=== PATIENT | male | born 1940 | race African-American/Black ===

== ENCOUNTER 2017-08-29 14:02 | Inpatient (IN) | payer MEDICAID, OTHER ==
[~2017-08-29] VITALS: Ht 172.7 cm; Wt 45.4 kg
--- NOTE | 2017-08-29 14:08 | Emergency Room Report ---
History of Present Illness General Source: Patient, EMS Present Illness HPI Paramedics were called by concerned neighbors. The patient's been losing weight and becoming weaker over the last month. He states his appetite has been good. He denies any pain in his body. She complains about generalized weakness. He denies any fevers, chills, shortness of breath, dysuria, rashes. The patient does not smoke. He hasn't seen a doctor for quite some time. He denies taking any medications at this time. Paramedics performed a 12-lead it was normal. Denies depression. Allergies: Coded Allergies: No Known Allergies (Verified , 07/05/11) Patient History Past Medical History: see triage record Social History: Denies: smoking, alcohol use, drug use Social History Narrative home Reviewed Nursing Documentation: PMH: Agreed, PSxH: Agreed Review of Systems All Other Systems: negative except mentioned in HPI Physical Exam Vital Signs Date Time Temp Pulse Resp B/P (MAP) Pulse Ox O2 Delivery O2 Flow Rate FiO2 08/29/17 14:08 90 16 142/96 99 Room Air 08/29/17 14:25 97.4 Sp02 EP Interpretation: reviewed, normal General Appearance: alert, GCS 15, non-toxic, thin - cachexia Eyes: bilateral eye normal inspection, bilateral eye PERRL ENT: moist mucus membranes - poor dentition Neck: normal inspection, full range of motion Respiratory: normal inspection, lungs clear, normal breath sounds Cardiovascular #1: regular rate, rhythm, no edema Cardiovascular #2: 2+ radial (L) Gastrointestinal: normal bowel sounds, non tender, soft, no mass, scaphoid Genitourinary: no CVA tenderness Musculoskeletal: back normal, digits/nails normal, normal range of motion Neurologic: alert, oriented x3, motor strength/tone normal, DTRs symmetric, sensory intact Psychiatric: mood/affect normal Skin: normal inspection, no rash Medical Decision Making Diagnostic Impression: Primary Impression: Hyperkalemia Additional Impressions: Renal failure Qualified Codes: N17.9 - Acute kidney failure, unspecified Hypothyroid Qualified Codes: E03.9 - Hypothyroidism, unspecified Failure to thrive Qualified Codes: R62.7 - Adult failure to thrive Protein calorie malnutrition Qualified Codes: E43 - Unspecified severe protein-calorie malnutrition ER Course Patient presents with generalized weakness. He really has retching calorie malnutrition at this time. Differential includes diabetes, acute myocardial infarction, alert slight imbalance, dehydration, occult infection and occult tumor. The patient will be evaluated with EKG, chest x-ray and labs. We will be giving him gentle IV hydration. EKG no injury. CXR hyperinflated lungs. Labs with renal failure. TSH elevated. Some pyuria. Elevated lactate. Improved slightly with IV hydration. Elevated TSH treated with hydrocortisone and synthroid. Admit med, Dr. Mtz - Dr. Pino international accounting manager. Laboratory Tests Test 08/29/17 14:30 08/29/17 15:45 08/29/17 16:50 White Blood Count 4.2 K/UL (4.8-10.8) L Red Blood Count 3.67 M/UL (4.70-6.10) L Hemoglobin 11.5 G/DL (14.2-18.0) L Hematocrit 36.9 % (42.0-52.0) L Mean Corpuscular Volume 101 FL (80-99) H Mean Corpuscular Hemoglobin 31.2 PG (27.0-31.0) H Mean Corpuscular Hemoglobin Concent 31.0 G/DL (32.0-36.0) L Red Cell Distribution Width 16.1 % (11.6-14.8) H Platelet Count 139 K/UL (150-450) L Mean Platelet Volume 8.3 FL (6.5-10.1) Neutrophils (%) (Auto) 78.4 % (45.0-75.0) H Lymphocytes (%) (Auto) 10.6 % (20.0-45.0) L Monocytes (%) (Auto) 6.6 % (1.0-10.0) Eosinophils (%) (Auto) 4.0 % (0.0-3.0) H Basophils (%) (Auto) 0.3 % (0.0-2.0) Erythrocyte Sedimentation Rate 93 MM/HR (0-20) H Prothrombin Time 10.3 SEC (9.30-11.50) Prothrombin Time INR 1.0 (0.9-1.1) PTT 28 SEC (23-33) Sodium Level 142 MMOL/L (136-145) Potassium Level 5.8 MMOL/L (3.5-5.1) H Chloride Level 106 MMOL/L (98-107) Carbon Dioxide Level 18 MMOL/L (21-32) L Anion Gap 19 mmol/L (5-15) H Blood Urea Nitrogen 134 mg/dL (7-18) H Creatinine 9.0 MG/DL (0.55-1.30) H Estimate Glomerular Filtration Rate mL/min (>60) Glucose Level 90 MG/DL (74-106) Lactic Acid Level 2.40 mmol/L (0.66-2.22) H 1.40 mmol/L (0.66-2.22) Calcium Level 9.6 MG/DL (8.5-10.1) Magnesium Level 2.2 MG/DL (1.8-2.4) Total Bilirubin 0.5 MG/DL (0.2-1.0) Aspartate Amino Transferase (AST) 13 U/L (15-37) L Alanine Aminotransferase (ALT) 16 U/L (12-78) Alkaline Phosphatase 56 U/L (46-116) Total Creatine Kinase 95 U/L (26-308) Troponin I 0.025 ng/mL (0.000-0.056) Pro-B-Type Natriuretic Peptide 5430 pg/mL (0-125) H Total Protein 8.2 G/DL (6.4-8.2) Albumin 3.2 G/DL (3.4-5.0) L Globulin 5.0 g/dL Albumin/Globulin Ratio 0.6 (1.0-2.7) L Thyroid Stimulating Hormone (TSH) 12.627 uiU/mL (0.358-3.740) Serum Alcohol 3 mg/dL Urine Color Pale yellow Urine Appearance Clear Urine pH 5 (4.5-8.0) Urine Specific [place] 1.010 (1.005-1.035) Urine Protein 2+ (NEGATIVE) H Urine Glucose (UA) Negative (NEGATIVE) Urine Ketones Negative (NEGATIVE) Urine Occult Blood 1+ (NEGATIVE) H Urine Nitrite Negative (NEGATIVE) Urine Bilirubin Negative (NEGATIVE) Urine Urobilinogen Normal MG/DL (0.0-1.0) Urine Leukocyte Esterase 1+ (NEGATIVE) H Urine RBC 2-4 /HPF (0 - 0) H Urine WBC 5-10 /HPF (0 - 0) H Urine Squamous Epithelial Cells None /LPF (NONE/OCC) Urine Amorphous Sediment Moderate /LPF (NONE) H Urine Bacteria Few /HPF (NONE) Urine Opiates Screen Negative (NEGATIVE) Urine Barbiturates Screen Negative (NEGATIVE) Phencyclidine (PCP) Screen Negative (NEGATIVE) Urine Amphetamines Screen Negative (NEGATIVE) Urine Benzodiazepines Screen Negative (NEGATIVE) Urine Cocaine Screen Negative (NEGATIVE) Urine Marijuana (THC) Screen Negative (NEGATIVE) EKG Diagnostic Results Rate: normal Rhythm: NSR ST Segments: no acute changes Rhythm Strip Diag. Results EP Interpretation: yes Rhythm: NSR, no PVC's, no ectopy Chest X-Ray Diagnostic Results Chest X-Ray Diagnostic Results : Chest X-Ray Ordered: Yes Indication: Other EP Interpretation: Yes Interpretation: no consolidation, no effusion, no pneumothorax, other - PC malnutrition Impression: Other Electronically Signed by: Electronically signed by Maxim Borges MD Last Vital Signs Date Time Temp Pulse Resp B/P (MAP) Pulse Ox O2 Delivery O2 Flow Rate FiO2 08/30/17 04:00 96.5 76 18 123/71 96 Room Air Status: improved Disposition: ADMITTED INPATIENT Condition: Serious Maxim Borges M.D. Aug 29, 2017 14:08
[2017-08-29] MEDS ORDERED: NKM (14:14)
[2017-08-29 14:25] VITALS: BP 127/83
[2017-08-29 14:57] LABS: BASOPHILS % (AUTO) 0.3 % (0.0-2.0); HEMATOCRIT 36.9 % (42.0-52.0); HEMOGLOBIN 11.5 G/DL (14.2-18.0); LYMPHOCYTES % (AUTO) 10.6 % (20.0-45.0); MEAN CORPUSCULAR VOLUME 101 FL (80-99); MONOCYTES % (AUTO) 6.6 % (1.0-10.0); NEUTROPHILS % (AUTO) 78.4 % (45.0-75.0); PLATELET COUNT 139 K/UL (150-450); RED BLOOD COUNT 3.67 M/UL (4.70-6.10); RED CELL DISTRIBUTION WIDTH 16.1 % (11.6-14.8); WHITE BLOOD COUNT 4.2 K/UL (4.8-10.8)
[2017-08-29 15:06] LABS: ANION GAP 19 mmol/L (5-15); BLOOD UREA NITROGEN 134 mg/dL (7-18); CALCIUM 9.6 MG/DL (8.5-10.1); CARBON DIOXIDE 18 MMOL/L (21-32); CHLORIDE 106 MMOL/L (98-107); POTASSIUM 5.8 MMOL/L (3.5-5.1); SODIUM 142 MMOL/L (136-145)
[2017-08-29 15:20] LABS: ALANINE AMINOTRANSFERASE 16 U/L (12-78); ALBUMIN 3.2 G/DL (3.4-5.0); ALBUMIN/GLOBULIN RATIO 0.6 (1.0-2.7); ALKALINE PHOSPHATASE 56 U/L (46-116); ASPARTATE AMINO TRANSFERASE 13 U/L (15-37); BILIRUBIN,TOTAL 0.5 MG/DL (0.2-1.0); CREATINE KINASE 95 U/L (26-308)
[2017-08-29] MEDS ORDERED: Calcium Gluconate 1gm/10ml vial IVP ONE (15:45)
[2017-08-29] MEDS ORDERED: Sodium Bicarbonate 50ml Carp IV ONE (15:45)
[2017-08-29] MEDS ORDERED: Sodium Polystyrene Sulfonate 15gm Powder ORAL ONE (15:45)
[2017-08-29] MEDS ORDERED: Hydrocortisone 100mg Inj IV ONE (15:45)
[2017-08-29 16:00] VITALS: BP 132/84
--- NOTE | 2017-08-29 16:07 | Diagnostic Imaging Report ---
Indication: Shortness of Technique: One view of the chest Comparison: 07/05/2011 Findings: Lungs and pleural spaces are clear. Heart size is normal again demonstrated are bilateral hilar granulomatous edie calcifications. The heart size is normal. There is mild elevation of the right hemidiaphragm. No significant interim change Impression: No acute process Evidence old granulomatous disease
[2017-08-29 16:14] LABS: APPEARANCE,URINE CLEAR; BILIRUBIN, URINE NEGATIVE (NEGATIVE); COLOR,URINE PALE YELLOW; GLUCOSE, URINE (UA) NEGATIVE (NEGATIVE); KETONES,URINE NEGATIVE (NEGATIVE); LEUKOCYTE ESTERASE ,URINE 1+ (NEGATIVE); NITRITE,URINE NEGATIVE (NEGATIVE); PH,URINE 5 (4.5-8.0); PROTEIN,URINE 2+ (NEGATIVE); UROBILINOGEN,URINE NORMAL MG/DL (0.0-1.0)
[2017-08-29 18:00] VITALS: BP 139/93
[2017-08-29 18:10] VITALS: BP 155/90
[2017-08-29 20:19] VITALS: BP 149/78
[2017-08-30] VITALS: BP 139/73
[2017-08-30 04:00] VITALS: BP 123/71
[2017-08-30 08:00] VITALS: BP 137/76
--- NOTE | 2017-08-30 10:39 | Cardiac Electrophysiology PN ---
Subjective Subjective [id number] Objective Last 24 Hour Vital Signs Date Time Temp Pulse Resp B/P (MAP) Pulse Ox O2 Delivery O2 Flow Rate FiO2 08/30/17 08:00 96.9 83 20 137/76 94 Room Air 08/30/17 04:00 96.5 76 18 123/71 96 Room Air 08/30/17 04:00 76 08/30/17 00:00 97.6 75 18 139/73 98 Room Air 08/30/17 00:00 77 08/29/17 20:19 98.1 76 22 149/78 98 Room Air 08/29/17 20:00 85 08/29/17 18:10 97.0 80 20 155/90 97 Room Air 08/29/17 18:00 97.4 87 21 139/93 100 Room Air 08/29/17 18:00 87 21 139/93 100 Room Air 08/29/17 16:00 91 17 132/84 100 Room Air 08/29/17 14:25 97.4 85 12 127/83 100 Room Air 08/29/17 14:08 90 16 142/96 99 Room Air Intake and Output 08/29/17 08/30/17 19:00 07:00 Intake Total 1600 ml Output Total 200 ml 400 ml Balance 1400 ml -400 ml Intake Oral 600 ml IV Total 1000 ml Output Urine Total 200 ml 400 ml Laboratory Tests Test 08/29/17 14:30 08/29/17 15:45 08/29/17 16:50 White Blood Count 4.2 K/UL (4.8-10.8) L Red Blood Count 3.67 M/UL (4.70-6.10) L Hemoglobin 11.5 G/DL (14.2-18.0) L Hematocrit 36.9 % (42.0-52.0) L Mean Corpuscular Volume 101 FL (80-99) H Mean Corpuscular Hemoglobin 31.2 PG (27.0-31.0) H Mean Corpuscular Hemoglobin Concent 31.0 G/DL (32.0-36.0) L Red Cell Distribution Width 16.1 % (11.6-14.8) H Platelet Count 139 K/UL (150-450) L Mean Platelet Volume 8.3 FL (6.5-10.1) Neutrophils (%) (Auto) 78.4 % (45.0-75.0) H Lymphocytes (%) (Auto) 10.6 % (20.0-45.0) L Monocytes (%) (Auto) 6.6 % (1.0-10.0) Eosinophils (%) (Auto) 4.0 % (0.0-3.0) H Basophils (%) (Auto) 0.3 % (0.0-2.0) Erythrocyte Sedimentation Rate 93 MM/HR (0-20) H Prothrombin Time 10.3 SEC (9.30-11.50) Prothromb Time International Ratio 1.0 (0.9-1.1) Activated Partial Thromboplast Time 28 SEC (23-33) Sodium Level 142 MMOL/L (136-145) Potassium Level 5.8 MMOL/L (3.5-5.1) H Chloride Level 106 MMOL/L (98-107) Carbon Dioxide Level 18 MMOL/L (21-32) L Anion Gap 19 mmol/L (5-15) H Blood Urea Nitrogen 134 mg/dL (7-18) H Creatinine 9.0 MG/DL (0.55-1.30) H Estimat Glomerular Filtration Rate mL/min (>60) Glucose Level 90 MG/DL (74-106) Lactic Acid Level 2.40 mmol/L (0.66-2.22) H 1.40 mmol/L (0.66-2.22) Calcium Level 9.6 MG/DL (8.5-10.1) Magnesium Level 2.2 MG/DL (1.8-2.4) Total Bilirubin 0.5 MG/DL (0.2-1.0) Aspartate Amino Transf (AST/SGOT) 13 U/L (15-37) L Alanine Aminotransferase (ALT/SGPT) 16 U/L (12-78) Alkaline Phosphatase 56 U/L (46-116) Total Creatine Kinase 95 U/L (26-308) Troponin I 0.025 ng/mL (0.000-0.056) Pro-B-Type Natriuretic Peptide 5430 pg/mL (0-125) H Total Protein 8.2 G/DL (6.4-8.2) Albumin 3.2 G/DL (3.4-5.0) L Globulin 5.0 g/dL Albumin/Globulin Ratio 0.6 (1.0-2.7) L Thyroid Stimulating Hormone (TSH) 12.627 uiU/mL (0.358-3.740) Serum Alcohol 3 mg/dL Urine Color Pale yellow Urine Appearance Clear Urine pH 5 (4.5-8.0) Urine Specific [place] 1.010 (1.005-1.035) Urine Protein 2+ (NEGATIVE) H Urine Glucose (UA) Negative (NEGATIVE) Urine Ketones Negative (NEGATIVE) Urine Occult Blood 1+ (NEGATIVE) H Urine Nitrite Negative (NEGATIVE) Urine Bilirubin Negative (NEGATIVE) Urine Urobilinogen Normal MG/DL (0.0-1.0) Urine Leukocyte Esterase 1+ (NEGATIVE) H Urine RBC 2-4 /HPF (0 - 0) H Urine WBC 5-10 /HPF (0 - 0) H Urine Squamous Epithelial Cells None /LPF (NONE/OCC) Urine Amorphous Sediment Moderate /LPF (NONE) H Urine Bacteria Few /HPF (NONE) Urine Opiates Screen Negative (NEGATIVE) Urine Barbiturates Screen Negative (NEGATIVE) Phencyclidine (PCP) Screen Negative (NEGATIVE) Urine Amphetamines Screen Negative (NEGATIVE) Urine Benzodiazepines Screen Negative (NEGATIVE) Urine Cocaine Screen Negative (NEGATIVE) Urine Marijuana (THC) Screen Negative (NEGATIVE) LATASHA TOLEDO Aug 30, 2017 10:39
[2017-08-30 12:00] VITALS: BP 110/66
[2017-08-30 12:33] LABS: HEMATOCRIT 31.2 % (42.0-52.0); HEMOGLOBIN 9.8 G/DL (14.2-18.0); MEAN CORPUSCULAR VOLUME 100 FL (80-99); MONOCYTES % (AUTO) 9.8 % (1.0-10.0); NEUTROPHILS % (AUTO) 74.3 % (45.0-75.0); PLATELET COUNT 105 K/UL (150-450); RED BLOOD COUNT 3.13 M/UL (4.70-6.10); RED CELL DISTRIBUTION WIDTH 15.8 % (11.6-14.8); WHITE BLOOD COUNT 3.8 K/UL (4.8-10.8)
--- NOTE | 2017-08-30 13:19 | Consultation ---
Consult Note Consult Note asked to eval for renal failure Paramedics were called by concerned neighbors. The patient's been losing weight and becoming weaker over the last month. He states his appetite has been good. He denies any pain in his body. She complains about generalized weakness. He denies any fevers, chills, shortness of breath, dysuria, rashes. The patient does not smoke. He hasn't seen a doctor for quite some time. He denies taking any medications at this time. Paramedics performed a 12-lead it was normal. Assessment/Plan status: acute renal failure- high K Urinary out let obstruction- 450 cc Urine after moscoso Underlying CKD Anemia Malnutrition, FTT HypoThyroid Plan: [place]- IV fluid- Monitor renal parameters avoid nephro toxics improve nutrition FAHEEM PRINGLE Aug 30, 2017 13:19
[2017-08-30 13:25] LABS: ANION GAP 23 mmol/L (5-15); BLOOD UREA NITROGEN 130 mg/dL (7-18); CALCIUM 8.8 MG/DL (8.5-10.1); CARBON DIOXIDE 15 MMOL/L (21-32); CHLORIDE 104 MMOL/L (98-107); CREATININE 8.4 MG/DL (0.55-1.30); POTASSIUM 4.1 MMOL/L (3.5-5.1); SODIUM 142 MMOL/L (136-145)
[2017-08-30 13:29] LABS: PHOSPHORUS 7.3 MG/DL (2.5-4.9)
[2017-08-30 13:38] LABS: % IRON SATURATION 57 % (15-50); IRON 70 ug/dL (50-175); TOTAL IRON BINDING CAPACITY 122 ug/dL (250-450)
[2017-08-30] MEDS: D5 1/2NS 1,000 ML IV SCH ×2 (13:52→23:30)
[2017-08-30 16:00] VITALS: BP 100/75
[2017-08-30] MEDS: Dronabinol 2.5mg Cap ORAL SCH (18:15)
--- NOTE | 2017-08-30 18:22 | Diagnostic Imaging Report ---
Indication: Renal failure, hematuria Technique: Multiplanar grayscale and color Doppler imaging of the kidneys and bladder Comparison: None Findings: There is a complex, heterogeneous structure in the bladder measuring approximately 3.3 x 5.6 x 3.8 cm. A Houser catheter is noted within the bladder. Given history of hematuria this may represent blood clot however mass or additional etiologies are not excluded. There is mild bilateral hydroureteronephrosis. No contour deforming renal mass appreciated bilaterally. IMPRESSION: Houser catheter noted in the bladder. Heterogeneous structure within the bladder possibly representing blood clot given history of hematuria. Neoplasm or additional etiologies not excluded. Further evaluation with additional cross-sectional imaging (contrast-enhanced CT or MR) and/or direct visualization with cystoscopy recommend for further evaluation. Mild bilateral hydroureteronephrosis, possibly related to obstruction from described bladder lesion. BERNIE Bob was informed of findings at approximately 13:00, as documented in the preliminary report by the dairy technologist.
--- NOTE | 2017-08-30 18:25 | History and Physical ---
History of Present Illness General Date patient seen: Aug 30, 2017 Time patient seen: 10:00 Reason for Hospitalization: Generalized Weakness Present Illness HPI 77yo male with no known pmh who presents with generalized weakness and weight loss. Pt is poor historian. Per reports, paramedics were called by concerned neighbors. The pt has been noted to be weaker and losing weight over the past month. Pt states his appetite is good. He denies pain, f/c, n/v, d/c, chest pain , SOB. Pt states he has not family or friends nearby. In ED, pt noted to be renal failure to SCr 9, BUN 134, K 5.8. He was given IVFs. He was also found to be hypothroid and given steroids + levothyroxine. Allergies: Coded Allergies: No Known Allergies (Verified , 07/05/11) Medication History Scheduled No Known Medications* (NKM - No Known Medications*), 0 ., (Reported) Patient History History Provided By: Patient, Medical Record, EMS Healthcare decision maker N Resuscitation status Full Code Advanced Directive on File Past Medical/Surgical History Past Medical/Surgical History: (1) No known problems Family History Family History: Patient reports no known family medical history. Social History Social History: (1) Lives alone without help available Review of Systems Constitutional: Reports: malaise, weakness Eye: Reports: no symptoms ENT: Reports: no symptoms Respiratory: Reports: no symptoms Cardiovascular: Reports: no symptoms Gastrointestinal: Reports: no symptoms Genitourinary: Reports: no symptoms Musculoskeletal: Reports: no symptoms Skin: Reports: no symptoms Psychiatric: Reports: no symptoms Neurological: Reports: no symptoms Endocrine: Reports: unexplained weight loss Hematologic/Lymphatic: Reports: no symptoms Physical Exam Physical Exam Narrative General: alert, cooperative, no distress, appears stated age, cachectic Head: normocephalic, without obvious abnormality, atraumatic Eyes: conjunctivae/corneas clear. PERRL, EOM's intact Throat: lips, mucosa, and tongue normal. MMM Neck: supple, symmetrical, trachea midline, and no JVD Lungs: clear to auscultation bilaterally Heart: regular rate and rhythm, S1, S2 normal, no murmur, click, rub or gallop Abdomen: soft, non-tender, non-distended, bowel sounds normal Extremities: extremities normal, atraumatic, no cyanosis or edema Pulses: 2+ and symmetric Skin: skin color, texture, turgor normal; no rashes or lesions Neurologic: grossly normal, no focal deficits Last 24 Hour Vital Signs Date Time Temp Pulse Resp B/P (MAP) Pulse Ox O2 Delivery O2 Flow Rate FiO2 08/30/17 16:00 96.3 74 20 100/75 100 Room Air 08/30/17 12:00 96.1 73 20 110/66 100 Room Air 08/30/17 12:00 71 08/30/17 08:00 96.9 83 20 137/76 94 Room Air 08/30/17 08:00 78 08/30/17 04:00 96.5 76 18 123/71 96 Room Air 08/30/17 04:00 76 08/30/17 00:00 97.6 75 18 139/73 98 Room Air 08/30/17 00:00 77 08/29/17 20:19 98.1 76 22 149/78 98 Room Air 08/29/17 20:00 85 Intake and Output 08/29/17 08/30/17 19:00 07:00 Intake Total 1600 ml Output Total 200 ml 400 ml Balance 1400 ml -400 ml Intake Oral 600 ml IV Total 1000 ml Output Urine Total 200 ml 400 ml Laboratory Tests Test 08/30/17 11:50 08/30/17 16:20 White Blood Count 3.8 K/UL (4.8-10.8) L Red Blood Count 3.13 M/UL (4.70-6.10) L Hemoglobin 9.8 G/DL (14.2-18.0) L Hematocrit 31.2 % (42.0-52.0) L Mean Corpuscular Volume 100 FL (80-99) H Mean Corpuscular Hemoglobin 31.4 PG (27.0-31.0) H Mean Corpuscular Hemoglobin Concent 31.5 G/DL (32.0-36.0) L Red Cell Distribution Width 15.8 % (11.6-14.8) H Platelet Count 105 K/UL (150-450) L Mean Platelet Volume 8.1 FL (6.5-10.1) Neutrophils (%) (Auto) 74.3 % (45.0-75.0) Lymphocytes (%) (Auto) 14.0 % (20.0-45.0) L Monocytes (%) (Auto) 9.8 % (1.0-10.0) Eosinophils (%) (Auto) 1.0 % (0.0-3.0) Basophils (%) (Auto) 1.0 % (0.0-2.0) Sodium Level 142 MMOL/L (136-145) Potassium Level 4.1 MMOL/L (3.5-5.1) Chloride Level 104 MMOL/L (98-107) Carbon Dioxide Level 15 MMOL/L (21-32) L Anion Gap 23 mmol/L (5-15) H Blood Urea Nitrogen 130 mg/dL (7-18) H Creatinine 8.4 MG/DL (0.55-1.30) H Estimat Glomerular Filtration Rate mL/min (>60) Glucose Level 116 MG/DL (74-106) H Calcium Level 8.8 MG/DL (8.5-10.1) Phosphorus Level 7.3 MG/DL (2.5-4.9) H Magnesium Level 2.0 MG/DL (1.8-2.4) Iron Level 70 ug/dL (50-175) Total Iron Binding Capacity 122 ug/dL (250-450) L Percent Iron Saturation 57 % (15-50) H Unsaturated Iron Binding 52 ug/dL (112-346) L Ferritin 1384 NG/ML (8-388) H Troponin I 0.028 ng/mL (0.000-0.056) 0.031 ng/mL (0.000-0.056) C-Reactive Protein, Quantitative 6.9 mg/dL (0.00-0.90) H 6.2 mg/dL (0.00-0.90) H Prealbumin Pending Vitamin B12 Level 1608 PG/ML (193-986) H Vitamin D 25-Hydroxy Pending 25-Hydroxy Vitamin D2 Pending 25-Hydroxy Vitamin D3 Pending Folate 2.5 NG/ML (8.6-58.9) L Free Thyroxine 0.77 NG/DL (0.76-1.46) Height (Feet): 5 Height (Inches): 8.00 Weight (Pounds): 100 Medications Current Medications Medications (Trade) Dose Ordered Sig/Saud Route PRN Reason Start Time Stop Time Status Last Admin Dose Admin Dextrose/Sodium Chloride 1,000 ml @ 100 mls/hr Q10H IV 08/30/17 13:30 09/29/17 13:29 08/30/17 13:52 Dronabinol (Marinol) 2.5 mg TID ORAL 08/30/17 18:00 09/29/17 17:59 08/30/17 18:15 Folic Acid (Folate) 1 mg DAILY ORAL 08/30/17 14:00 09/29/17 13:59 08/30/17 13:58 Pantoprazole (Protonix) 40 mg DAILY ORAL 08/30/17 14:00 09/29/17 13:59 08/30/17 13:53 Assessment/Plan Problem List: (1) Acute renal failure ICD Codes: N17.9 - Acute kidney failure, unspecified SNOMED: 12833008 (2) Hypothyroidism ICD Codes: E03.9 - Hypothyroidism, unspecified SNOMED: 35317937 (3) Failure to thrive SNOMED: 36351439 Qualifiers: Qualified Codes: R62.7 - Adult failure to thrive (4) Severe protein-calorie malnutrition ([place]: less than 60% of standard weight ) ICD Codes: E43 - Unspecified severe protein-calorie malnutrition SNOMED: 379347197 (5) Hyperkalemia ICD Codes: E87.5 - Hyperkalemia SNOMED: 36911256 (6) Underweight ICD Codes: R63.6 - Underweight SNOMED: 443547860 Status: stable Assessment/Plan Admit inpt Renal consulted IVFs Trend BMP closely Place moscoso for strict I/O's Strict I/O's, daily weights Check renal U/S Check TTE Cardiology consulted Endocrinology consulted given elevated TSH Check B12/folate, free T4, vit D, ferritin, iron panel, prealbumin, ESR/CRP Installation Technician consulted Swallow eval SW consult for home safety eval and to locate family/friends if available DVT ppx: SCDs, HSQ FULL CODE per policy D/w pt, RN, SW/CM, renal, cardiology, endo regarding mgmt and dispo Tabatha Starr M.D. Aug 30, 2017 18:25
[2017-08-30 20:00] VITALS: BP 140/79
[2017-08-31] VITALS (7 sets, daily range): BP systolic 107–150; BP diastolic 67–95
[2017-08-31] MEDS ORDERED: Zolpidem 5mg tab ORAL ONE (03:30)
--- NOTE | 2017-08-31 06:31 | General Progress Note ---
Assessment/Plan Problem List: (1) Hypothyroid ICD Codes: E03.9 - Hypothyroidism, unspecified SNOMED: 04814164 Qualifiers: Qualified Codes: E03.9 - Hypothyroidism, unspecified (2) Renal failure ICD Codes: N19 - Unspecified kidney failure SNOMED: 73945806 Qualifiers: Qualified Codes: N17.9 - Acute kidney failure, unspecified (3) Failure to thrive SNOMED: 42458527 Qualifiers: Qualified Codes: R62.7 - Adult failure to thrive (4) Hyperkalemia ICD Codes: E87.5 - Hyperkalemia SNOMED: 07834611 (5) Protein calorie malnutrition ICD Codes: E46 - Unspecified protein-calorie malnutrition SNOMED: 369667100 Qualifiers: Qualified Codes: E43 - Unspecified severe protein-calorie malnutrition Assessment/Plan start Levothyroxine 50 mcg daily repeat thyroid function as OP in 3-4 weeks Subjective ROS Limited/Unobtainable: Yes Allergies: Coded Allergies: No Known Allergies (Verified , 07/05/11) Subjective events noted - interval notes reviewed Objective Last 24 Hour Vital Signs Date Time Temp Pulse Resp B/P (MAP) Pulse Ox O2 Delivery O2 Flow Rate FiO2 08/30/17 20:00 98.0 85 20 140/79 97 08/30/17 20:00 98.0 85 20 140/79 97 Room Air 08/30/17 16:00 96.3 74 20 100/75 100 Room Air 08/30/17 16:00 71 08/30/17 12:00 96.1 73 20 110/66 100 Room Air 08/30/17 12:00 71 08/30/17 08:00 96.9 83 20 137/76 94 Room Air 08/30/17 08:00 78 Intake and Output 08/30/17 08/31/17 19:00 07:00 Intake Total 120 ml Output Total 650 ml Balance -530 ml Intake Oral 120 ml Output Urine Total 650 ml # Voids 1 Laboratory Tests 08/30/17 11:50: White Blood Count 3.8L, Red Blood Count 3.13L, Hemoglobin 9.8L, Hematocrit 31.2L , Mean Corpuscular Volume 100H, Mean Corpuscular Hemoglobin 31.4H, Mean Corpuscular Hemoglobin Concent 31.5L, Red Cell Distribution Width 15.8H, Platelet Count 105L, Mean Platelet Volume 8.1, Neutrophils (%) (Auto) 74.3, Lymphocytes (%) (Auto) 14.0L, Monocytes (%) (Auto) 9.8, Eosinophils (%) (Auto) 1.0, Basophils (%) (Auto) 1.0, Sodium Level 142, Potassium Level 4.1, Chloride Level 104, Carbon Dioxide Level 15L, Anion Gap 23H, Blood Urea Nitrogen 130H, Creatinine 8.4H, Estimat Glomerular Filtration Rate , Glucose Level 116H, Calcium Level 8.8, Phosphorus Level 7.3H, Magnesium Level 2.0, Iron Level 70, Total Iron Binding Capacity 122L, Percent Iron Saturation 57H, Unsaturated Iron Binding 52L, Ferritin 1384H, Troponin I 0.028, C-Reactive Protein, Quantitative 6.9H, Prealbumin [Pending], Vitamin B12 Level 1608H, Vitamin D 25-Hydroxy [ Pending], 25-Hydroxy Vitamin D2 [Pending], 25-Hydroxy Vitamin D3 [Pending], Folate 2.5L, Free Thyroxine 0.77 08/30/17 16:20: Troponin I 0.031, C-Reactive Protein, Quantitative 6.2H Height (Feet): 5 Height (Inches): 8.00 Weight (Pounds): 100 General Appearance: no apparent distress Neck: normal alignment Cardiovascular: regular rhythm Respiratory/Chest: decreased breath sounds Abdomen: normal bowel sounds Pelvis: normal external exam Edema: no edema noted Arm (L), no edema noted Arm (R), no edema noted Leg (L), no edema noted Leg (R), no edema noted Pedal (L), no edema noted Pedal (R), no edema noted Generalized Objective Current Medications Medications (Trade) Dose Ordered Sig/Saud Route PRN Reason Start Time Stop Time Status Last Admin Dose Admin Dextrose/Sodium Chloride 1,000 ml @ 100 mls/hr Q10H IV 08/30/17 13:30 09/29/17 13:29 08/30/17 23:30 Dronabinol (Marinol) 2.5 mg TID ORAL 08/30/17 18:00 09/29/17 17:59 08/30/17 18:15 Folic Acid (Folate) 1 mg DAILY ORAL 08/30/17 14:00 09/29/17 13:59 08/30/17 13:58 Pantoprazole (Protonix) 40 mg DAILY ORAL 08/30/17 14:00 09/29/17 13:59 08/30/17 13:53 CLARISSA BHARDWAJ Aug 31, 2017 06:31
[2017-08-31 07:49] LABS: APPEARANCE,URINE VERY CLOUDY; BILIRUBIN, URINE NEGATIVE (NEGATIVE); GLUCOSE, URINE (UA) 1+ (NEGATIVE); KETONES,URINE 1+ (NEGATIVE); LEUKOCYTE ESTERASE ,URINE 2+ (NEGATIVE); NITRITE,URINE NEGATIVE (NEGATIVE); PH,URINE 7 (4.5-8.0); PROTEIN,URINE 4+ (NEGATIVE); UROBILINOGEN,URINE NORMAL MG/DL (0.0-1.0)
[2017-08-31 07:54] LABS: COLOR,URINE RED
[2017-08-31] MEDS: Dronabinol 2.5mg Cap ORAL SCH ×3 (08:33→17:28)
[2017-08-31] MEDS: D5 1/2NS 1,000 ML IV SCH ×2 (09:38→20:42)
[2017-08-31 10:46] LABS: BASOPHILS % (AUTO) 0.4 % (0.0-2.0); EOSINOPHILS % (AUTO) 6.8 % (0.0-3.0); HEMOGLOBIN 10.3 G/DL (14.2-18.0); LYMPHOCYTES % (AUTO) 8.3 % (20.0-45.0); MEAN CORPUSCULAR VOLUME 98 FL (80-99); NEUTROPHILS % (AUTO) 75.5 % (45.0-75.0); PLATELET COUNT 122 K/UL (150-450); RED BLOOD COUNT 3.36 M/UL (4.70-6.10); RED CELL DISTRIBUTION WIDTH 15.3 % (11.6-14.8); WHITE BLOOD COUNT 4.4 K/UL (4.8-10.8)
[2017-08-31 11:20] LABS: ALANINE AMINOTRANSFERASE 12 U/L (12-78); ALBUMIN 2.6 G/DL (3.4-5.0); ALBUMIN/GLOBULIN RATIO 0.6 (1.0-2.7); ALKALINE PHOSPHATASE 43 U/L (46-116); ANION GAP 17 mmol/L (5-15); ASPARTATE AMINO TRANSFERASE 13 U/L (15-37); BILIRUBIN,TOTAL 0.3 MG/DL (0.2-1.0); BLOOD UREA NITROGEN 123 mg/dL (7-18); CALCIUM 8.4 MG/DL (8.5-10.1); CARBON DIOXIDE 21 MMOL/L (21-32); CHLORIDE 106 MMOL/L (98-107); CREATININE 7.9 MG/DL (0.55-1.30); POTASSIUM 3.4 MMOL/L (3.5-5.1); SODIUM 143 MMOL/L (136-145)
[2017-08-31] MEDS: LORazepam Inj 2mg/ml 1ml IM PRN ×2 (11:42→22:05)
[2017-08-31 11:48] LABS: PHOSPHORUS 5.8 MG/DL (2.5-4.9)
--- NOTE | 2017-08-31 12:51 | Cardiac Electrophysiology PN ---
Assessment/Plan Assessment/Plan 1. Syncope, Likely due to dehydration and volume depletion. Echo NL EF 70% 2. Troponine leak, due to renal failure. 3. FTT 4. Renal failure. Follow up Dr Segovia.On iv fluid Subjective Subjective Feeling better. RN feeding patient. In restraints Objective Last 24 Hour Vital Signs Date Time Temp Pulse Resp B/P (MAP) Pulse Ox O2 Delivery O2 Flow Rate FiO2 08/31/17 12:00 98.8 79 18 130/67 95 Room Air 08/31/17 08:49 78 08/31/17 08:41 97.2 79 18 135/75 95 Room Air 08/31/17 04:00 97.2 86 18 116/85 95 08/31/17 00:00 97.2 86 18 116/85 95 08/31/17 00:00 88 08/30/17 20:00 78 08/30/17 20:00 98.0 85 20 140/79 97 08/30/17 20:00 98.0 85 20 140/79 97 Room Air 08/30/17 16:00 96.3 74 20 100/75 100 Room Air 08/30/17 16:00 71 Intake and Output 08/30/17 08/31/17 19:00 07:00 Intake Total 120 ml 100 ml Output Total 650 ml 500 ml Balance -530 ml -400 ml Intake Oral 120 ml IV Total 100 ml Output Urine Total 650 ml 500 ml # Voids 1 Laboratory Tests Test 08/30/17 16:20 08/31/17 06:00 08/31/17 10:00 Troponin I 0.031 ng/mL (0.000-0.056) 0.057 ng/mL (0.000-0.056) C-Reactive Protein, Quantitative 6.2 mg/dL (0.00-0.90) H Urine Color Red Urine Appearance Very cloudy Urine pH 7 (4.5-8.0) Urine Specific [place] 1.010 (1.005-1.035) Urine Protein 4+ (NEGATIVE) H Urine Glucose (UA) 1+ (NEGATIVE) H Urine Ketones 1+ (NEGATIVE) H Urine Occult Blood 5+ (NEGATIVE) H Urine Nitrite Negative (NEGATIVE) Urine Bilirubin Negative (NEGATIVE) Urine Urobilinogen Normal MG/DL (0.0-1.0) Urine Leukocyte Esterase 2+ (NEGATIVE) H Urine RBC Tntc /HPF (0 - 0) H Urine WBC 5-10 /HPF (0 - 0) H Urine Squamous Epithelial Cells Occasional /LPF Urine Bacteria Occasional /HPF (NONE) Urine Random Sodium 82 MEQ/L (20-110) Urine Creatinine 36.2 MG/DL (30.0-125.0) White Blood Count 4.4 K/UL (4.8-10.8) L Red Blood Count 3.36 M/UL (4.70-6.10) L Hemoglobin 10.3 G/DL (14.2-18.0) L Hematocrit 33.0 % (42.0-52.0) L Mean Corpuscular Volume 98 FL (80-99) Mean Corpuscular Hemoglobin 30.7 PG (27.0-31.0) Mean Corpuscular Hemoglobin Concent 31.4 G/DL (32.0-36.0) L Red Cell Distribution Width 15.3 % (11.6-14.8) H Platelet Count 122 K/UL (150-450) L Mean Platelet Volume 7.7 FL (6.5-10.1) Neutrophils (%) (Auto) 75.5 % (45.0-75.0) H Lymphocytes (%) (Auto) 8.3 % (20.0-45.0) L Monocytes (%) (Auto) 9.0 % (1.0-10.0) Eosinophils (%) (Auto) 6.8 % (0.0-3.0) H Basophils (%) (Auto) 0.4 % (0.0-2.0) Sodium Level 143 MMOL/L (136-145) Potassium Level 3.4 MMOL/L (3.5-5.1) L Chloride Level 106 MMOL/L (98-107) Carbon Dioxide Level 21 MMOL/L (21-32) Anion Gap 17 mmol/L (5-15) H Blood Urea Nitrogen 123 mg/dL (7-18) H Creatinine 7.9 MG/DL (0.55-1.30) H Estimat Glomerular Filtration Rate mL/min (>60) Glucose Level 124 MG/DL (74-106) H Uric Acid 12.6 MG/DL (2.6-7.2) H Calcium Level 8.4 MG/DL (8.5-10.1) L Phosphorus Level 5.8 MG/DL (2.5-4.9) H Magnesium Level 1.9 MG/DL (1.8-2.4) Total Bilirubin 0.3 MG/DL (0.2-1.0) Aspartate Amino Transf (AST/SGOT) 13 U/L (15-37) L Alanine Aminotransferase (ALT/SGPT) 12 U/L (12-78) Alkaline Phosphatase 43 U/L (46-116) L Pro-B-Type Natriuretic Peptide 6452 pg/mL (0-125) H Total Protein 6.6 G/DL (6.4-8.2) Albumin 2.6 G/DL (3.4-5.0) L Globulin 4.0 g/dL Albumin/Globulin Ratio 0.6 (1.0-2.7) L Thyroid Stimulating Hormone (TSH) 10.422 uiU/mL (0.358-3.740) Free Thyroxine 0.83 NG/DL (0.76-1.46) Objective HEENT: No JVD LUNGS: CLEAR CVS: RRR ABDOMEN: SOFT EXT: NO EDEMA LATASHA TOLEDO Aug 31, 2017 12:51
--- NOTE | 2017-08-31 12:56 | Consultation ---
DATE OF CONSULTATION: 08/30/2017 CARDIOLOGY CONSULTATION CONSULTING PHYSICIAN: Enzo Ozuna M.D. REFERRING PHYSICIAN: Inez Mtz M.D. REASON FOR CONSULTATION: Tachycardia and possible congestive heart failure. HISTORY OF PRESENT ILLNESS: The patient is a 77-year-old gentleman, who was called in by members. The patient has been losing weight and becoming weaker and weaker over the last one month. The patient denies any chest pain or palpitation, and has been complaining of generalized weakness. The patient has not seen a doctor for quite some time. In the emergency room, blood pressure 142/96, pulse 90, and respirations 16. His hemoglobin was 11.5. The patient's potassium was elevated at 5.8 with BUN of 134 and creatinine of 9. Troponin was also marginally elevated. His BNP is more than 5000. PAST MEDICAL HISTORY: Hypertension. MEDICATIONS: Per reconciliation. SOCIAL HISTORY: He lives at home alone. Does not smoke or drink alcohol. FAMILY HISTORY: Noncontributory. REVIEW OF SYSTEMS: Review of systems was negative other than what was mentioned in the history of present illness. PHYSICAL EXAMINATION: VITAL SIGNS: Blood pressure is 137/76, pulse 82, respirations 20, and temperature 96.9. HEAD AND NECK: Shows mild jugular venous distention. LUNGS: Decreased breath sounds. CARDIOVASCULAR: Shows regular S1 and S2 with no gallop. ABDOMEN: Soft. EXTREMITIES: No pitting edema. LABORATORY AND DIAGNOSTIC DATA: His EKG showed sinus rhythm with no acute ST-T wave abnormalities. Labs showed a white count of 4.2, hemoglobin 11.5, hematocrit 37, and platelet count of 139,000. Sodium 42, potassium 5.8, BUN of 134, creatinine of 9, and glucose of 90. Troponin is negative. BNP is 5470. His TSH is 12.6. ASSESSMENT AND PLAN: 1. Severe hyperkalemia due to renal failure. The patient is off of any potassium supplements or LETTY inhibitors. 2. Possible hypothyroidism. The TSH is more than 12. We will get an echocardiogram to evaluate for ejection fraction and wall motion abnormality. 3. Elevated BNP. Again, echocardiogram is pending. 4. Renal failure, is not clear. Houser catheter is pending as well as Nephrology consultation. 5. Generalized weakness and cachexia. 6. Protein-calorie malnutrition. Thank you very much, Dr. Mtz, for allowing me to participate in the care of this patient. Please do not hesitate to contact me for any questions regarding my evaluation. Enzo Ozuna M.D. DR: YUMIKO JOB#: [id number] CC:
[2017-08-31] MEDS ORDERED: OLANZapine 2.5mg tab ORAL PRN (16:15)
--- NOTE | 2017-08-31 16:29 | General Progress Note ---
Assessment/Plan Problem List: (1) Acute renal failure Assessment & Plan: likely pre-renal ICD Codes: N17.9 - Acute kidney failure, unspecified SNOMED: 36365190 (2) Acute encephalopathy ICD Codes: G93.40 - Encephalopathy, unspecified SNOMED: 1654894 (3) Hypothyroidism ICD Codes: E03.9 - Hypothyroidism, unspecified SNOMED: 64709459 (4) Failure to thrive SNOMED: 75571691 Qualifiers: Qualified Codes: R62.7 - Adult failure to thrive (5) Severe protein-calorie malnutrition ([place]: less than 60% of standard weight ) ICD Codes: E43 - Unspecified severe protein-calorie malnutrition SNOMED: 053658890 (6) Hyperkalemia ICD Codes: E87.5 - Hyperkalemia SNOMED: 58386927 (7) Underweight ICD Codes: R63.6 - Underweight SNOMED: 992107337 (8) Hypokalemia ICD Codes: E87.6 - Hypokalemia SNOMED: 19714860 (9) Folate deficiency ICD Codes: E53.8 - Deficiency of other specified B group vitamins SNOMED: 490894292 (10) Anemia of chronic disease ICD Codes: D63.8 - Anemia in other chronic diseases classified elsewhere SNOMED: 887191059 Status: stable Assessment/Plan Renal consulted Cont IVFs Trend BMP closely Place moscoso for strict I/O's Strict I/O's, daily weights F/u renal U/S--> possible blood clot vs mass in bladder, mild b/l hydroureteronephrosis Urology consulted given hematuria and renal U/S findings Will likely need CT a/p and cystoscopy at some point per urology but can be done electively Cardiology consulted F/u TTE--> EF 70% Endocrinology consulted given elevated TSH Cont synthroid 50mcg daily Cont folate 1mg daily as folate level low F/u Vit D level Marketing Liaison consulted Swallow eval SW consult for home safety eval and to locate family/friends if available Psych consulted given agitation. Pt has no capacity to leave AMA at this time Per CM, pt's insurance requesting to transfer to another hospital. Pt is medically stable for transfer DVT ppx: SCDs FULL CODE per policy D/w pt, RN, SW/CM, renal, cardiology, endo regarding mgmt and dispo Subjective Date patient seen: Aug 31, 2017 Time patient seen: 11:00 ROS Limited/Unobtainable: Yes Constitutional: Reports: malaise, weakness Allergies: Coded Allergies: No Known Allergies (Verified , 07/05/11) Subjective Moscoso placed yesterday and some hematuria noted overnight. Urology consulted SCr down to 7.9 Agitated this AM. Attempting to pull at moscoso and IV line. Wants to go home but does not appear to have capacity. Seen by psych who state pt has no capacity to leave AMA ROS limited 08/31 AMS, agitation Objective Last 24 Hour Vital Signs Date Time Temp Pulse Resp B/P (MAP) Pulse Ox O2 Delivery O2 Flow Rate FiO2 08/31/17 12:00 98.8 79 18 130/67 95 Room Air 08/31/17 08:49 78 08/31/17 08:41 97.2 79 18 135/75 95 Room Air 08/31/17 04:00 97.2 86 18 116/85 95 08/31/17 00:00 97.2 86 18 116/85 95 08/31/17 00:00 88 08/30/17 20:00 78 08/30/17 20:00 98.0 85 20 140/79 97 08/30/17 20:00 98.0 85 20 140/79 97 Room Air Intake and Output 08/30/17 08/31/17 19:00 07:00 Intake Total 120 ml 100 ml Output Total 650 ml 500 ml Balance -530 ml -400 ml Intake Oral 120 ml IV Total 100 ml Output Urine Total 650 ml 500 ml # Voids 1 Laboratory Tests 08/31/17 06:00: Urine Color Red, Urine Appearance Very cloudy, Urine pH 7, Urine Specific [place] 1.010, Urine Protein 4+H, Urine Glucose (UA) 1+H, Urine Ketones 1+H, Urine Occult Blood 5+H, Urine Nitrite Negative, Urine Bilirubin Negative, Urine Urobilinogen Normal, Urine Leukocyte Esterase 2+H, Urine RBC TntcH, Urine WBC 5- 10H, Urine Squamous Epithelial Cells Occasional, Urine Bacteria Occasional, Urine Random Sodium 82, Urine Creatinine 36.2 08/31/17 10:00: White Blood Count 4.4L, Red Blood Count 3.36L, Hemoglobin 10.3L, Hematocrit 33.0L, Mean Corpuscular Volume 98, Mean Corpuscular Hemoglobin 30.7, Mean Corpuscular Hemoglobin Concent 31.4L, Red Cell Distribution Width 15.3H, Platelet Count 122L, Mean Platelet Volume 7.7, Neutrophils (%) (Auto) 75.5H, Lymphocytes (%) (Auto) 8.3L, Monocytes (%) (Auto) 9.0, Eosinophils (%) (Auto) 6.8H, Basophils (%) (Auto) 0.4, Sodium Level 143, Potassium Level 3.4L, Chloride Level 106, Carbon Dioxide Level 21, Anion Gap 17H, Blood Urea Nitrogen 123H, Creatinine 7.9H, Estimat Glomerular Filtration Rate , Glucose Level 124H, Uric Acid 12.6H, Calcium Level 8.4L, Phosphorus Level 5.8H, Magnesium Level 1.9 , Total Bilirubin 0.3, Aspartate Amino Transf (AST/SGOT) 13L, Alanine Aminotransferase (ALT/SGPT) 12, Alkaline Phosphatase 43L, Troponin I 0.057H, Pro -B-Type Natriuretic Peptide 6452H, Total Protein 6.6, Albumin 2.6L, Globulin 4.0 , Albumin/Globulin Ratio 0.6L, Thyroid Stimulating Hormone (TSH) 10.422H, Free Thyroxine 0.83 Height (Feet): 5 Height (Inches): 8.00 Weight (Pounds): 100 Objective General: alert, cooperative, no distress, appears stated age, cachectic Head: normocephalic, without obvious abnormality, atraumatic Eyes: conjunctivae/corneas clear. PERRL, EOM's intact Throat: lips, mucosa, and tongue normal. MMM Neck: supple, symmetrical, trachea midline, and no JVD Lungs: clear to auscultation bilaterally Heart: regular rate and rhythm, S1, S2 normal, no murmur, click, rub or gallop Abdomen: soft, non-tender, non-distended, bowel sounds normal Extremities: extremities normal, atraumatic, no cyanosis or edema Pulses: 2+ and symmetric Skin: skin color, texture, turgor normal; no rashes or lesions Neurologic: grossly normal, no focal deficits Tabatha Starr M.D. Aug 31, 2017 16:29
--- NOTE | 2017-08-31 22:15 | Consultation ---
DATE OF CONSULTATION: HISTORY OF PRESENT ILLNESS: The patient is a 77-year-old male with a history of multiple medical problems including hypertension, failure to thrive, and possible renal failure, who has been admitted to the hospital for medical stabilization. The patient is presenting with confusion, disorientation, cognitive impairment, and agitation. The patient was in restraints, looks . He is unable to provide any history. He states that he wants to leave. The patient is unable to understand process, communicate, nor appreciate the information that was given to him in regards to the medical conditions. PAST PSYCHIATRIC HISTORY: Unknown. PAST MEDICAL HISTORY: Hypertension. ALLERGIES: No known drug allergies. SUBSTANCE ABUSE HISTORY: No known history of illicit drug use or alcohol. MENTAL STATUS EXAMINATION: The patient is alert, however, confused and disoriented. Mood is agitated. Affect is flat. Thought process, there is a paucity of thought content. Thought content, no suicidal or homicidal ideations. ASSESSMENT: [place] I Encephalopathy due to general medical condition. [place] II Deferred. [place] III Failure to thrive. [place] IV Unknown. [place] V 20. PLAN: 1. We will start the patient on Zyprexa 5 mg at bedtime. 2. The patient lacks capacity to leave against medical advice. 3. The patient will be transferred to another hospital for insurance reasons. Ana Ingram M.D. DR: ROBERTO JOB#: [id number] CC:
[2017-09-01 04:00] VITALS: BP 140/83
[2017-09-01] MEDS: D5 1/2NS 1,000 ML IV SCH ×3 (05:09→18:53)
[2017-09-01 08:00] VITALS: BP 148/98
[2017-09-01 09:09] LABS: HEMATOCRIT 30.6 % (42.0-52.0); HEMOGLOBIN 9.8 G/DL (14.2-18.0); MEAN CORPUSCULAR VOLUME 99 FL (80-99); PLATELET COUNT 99 K/UL (150-450); RED BLOOD COUNT 3.11 M/UL (4.70-6.10); RED CELL DISTRIBUTION WIDTH 15.8 % (11.6-14.8); WHITE BLOOD COUNT 4.5 K/UL (4.8-10.8)
[2017-09-01 09:32] LABS: ANION GAP 16 mmol/L (5-15); BLOOD UREA NITROGEN 121 mg/dL (7-18); CALCIUM 8.2 MG/DL (8.5-10.1); CARBON DIOXIDE 19 MMOL/L (21-32); CHLORIDE 107 MMOL/L (98-107); PHOSPHORUS 4.2 MG/DL (2.5-4.9); POTASSIUM 3.3 MMOL/L (3.5-5.1); SODIUM 142 MMOL/L (136-145)
[2017-09-01] MEDS: Dronabinol 2.5mg Cap ORAL SCH ×3 (09:42→18:50)
--- NOTE | 2017-09-01 11:38 | Urology Progress Note ---
Assessment/Plan Assessment/Plan urinary retention BPH hx probable neurogenic bladder hematuria renal insufficiency, acute on chronic hydro pyuria proteinuria keep moscoso hand irrigated, no clots consider CT check serum PSA cysto later pt to be transferred to another hosp Subjective Allergies: Coded Allergies: No Known Allergies (Verified , 07/05/11) Objective Last 24 Hour Vital Signs Date Time Temp Pulse Resp B/P (MAP) Pulse Ox O2 Delivery O2 Flow Rate FiO2 09/01/17 08:00 72 09/01/17 04:00 96.8 71 18 140/83 96 Room Air 09/01/17 00:00 84 08/31/17 23:51 97.2 80 18 150/95 99 Room Air 08/31/17 20:00 97.0 83 18 107/79 94 Room Air 08/31/17 18:21 98.2 80 18 136/70 95 Room Air 08/31/17 15:58 78 08/31/17 12:00 98.8 79 18 130/67 95 Room Air 08/31/17 11:49 90 Intake and Output 08/31/17 09/01/17 19:00 07:00 Intake Total 200 ml 1420 ml Output Total 700 ml Balance 200 ml 720 ml Intake Oral 320 ml IV Total 200 ml 1100 ml Output Urine Total 700 ml Microbiology Date/Time Source Procedure Growth Status 08/31/17 06:00 Urine,Clean Catch Urine Culture - Preliminary NO GROWTH Resulted Current Medications Medications (Trade) Dose Ordered Sig/Saud Route PRN Reason Start Time Stop Time Status Last Admin Dose Admin Dextrose/Sodium Chloride 1,000 ml @ 100 mls/hr Q10H IV 08/30/17 13:30 09/29/17 13:29 09/01/17 05:09 Dronabinol (Marinol) 2.5 mg TID ORAL 08/30/17 18:00 09/29/17 17:59 09/01/17 09:42 Folic Acid (Folate) 1 mg DAILY ORAL 08/30/17 14:00 09/29/17 13:59 09/01/17 09:42 Lorazepam (Ativan 2mg/ml 1ml) 0.5 mg Q6H PRN IM agitation/restlessness 08/31/17 11:45 09/07/17 11:44 08/31/17 22:05 Olanzapine (ZyPREXA) 2.5 mg EVERY 4 HOURS PRN ORAL agitation 08/31/17 16:15 09/30/17 16:14 Olanzapine (ZyPREXA) 5 mg BEDTIME ORAL 08/31/17 21:00 09/30/17 20:59 08/31/17 20:52 Pantoprazole (Protonix) 40 mg DAILY ORAL 08/30/17 14:00 09/29/17 13:59 09/01/17 09:42 Laboratory Tests 09/01/17 07:30: White Blood Count 4.5L, Red Blood Count 3.11L, Hemoglobin 9.8L, Hematocrit 30.6L , Mean Corpuscular Volume 99, Mean Corpuscular Hemoglobin 31.5H, Mean Corpuscular Hemoglobin Concent 32.0, Red Cell Distribution Width 15.8H, Platelet Count 99L, Mean Platelet Volume 8.4, Neutrophils (%) (Auto) , Lymphocytes (%) (Auto) , Monocytes (%) (Auto) , Eosinophils (%) (Auto) , Basophils (%) (Auto) , Neutrophils % (Manual) [Pending], Lymphocytes % (Manual) [Pending], Platelet Estimate [Pending], Platelet Morphology [Pending], Sodium Level 142, Potassium Level 3.3L, Chloride Level 107, Carbon Dioxide Level 19L, Anion Gap 16H, Blood Urea Nitrogen 121H, Creatinine 7.0H, Estimat Glomerular Filtration Rate , Glucose Level 134H, Calcium Level 8.2L, Phosphorus Level 4.2, Magnesium Level 1.8 Height (Feet): 5 Height (Inches): 8.00 Weight (Pounds): 100 Objective exam stable, urine is clearing MANISH MORAN Sep 01, 2017 11:38
[2017-09-01 12:00] VITALS: BP 134/88
--- NOTE | 2017-09-01 13:06 | Nephrology Progress Note ---
Assessment/Plan Problem List: (1) ARF (acute renal failure) Assessment: slightly better (2) Hyperkalemia (3) Protein calorie malnutrition (4) Anemia of chronic disease (5) Failure to thrive (6) Hypothyroid Plan IVF follow labs Nutritional support Subjective Subjective being fed Objective Objective Last 24 Hour Vital Signs Date Time Temp Pulse Resp B/P (MAP) Pulse Ox O2 Delivery O2 Flow Rate FiO2 09/01/17 08:00 98.8 77 19 148/98 96 Room Air 09/01/17 08:00 72 09/01/17 04:00 96.8 71 18 140/83 96 Room Air 09/01/17 00:00 84 08/31/17 23:51 97.2 80 18 150/95 99 Room Air 08/31/17 20:00 97.0 83 18 107/79 94 Room Air 08/31/17 18:21 98.2 80 18 136/70 95 Room Air 08/31/17 15:58 78 Intake and Output 08/31/17 09/01/17 19:00 07:00 Intake Total 200 ml 1420 ml Output Total 700 ml Balance 200 ml 720 ml Intake Oral 320 ml IV Total 200 ml 1100 ml Output Urine Total 700 ml Laboratory Tests 09/01/17 07:30: White Blood Count 4.5L, Red Blood Count 3.11L, Hemoglobin 9.8L, Hematocrit 30.6L , Mean Corpuscular Volume 99, Mean Corpuscular Hemoglobin 31.5H, Mean Corpuscular Hemoglobin Concent 32.0, Red Cell Distribution Width 15.8H, Platelet Count 99L, Mean Platelet Volume 8.4, Neutrophils (%) (Auto) , Lymphocytes (%) (Auto) , Monocytes (%) (Auto) , Eosinophils (%) (Auto) , Basophils (%) (Auto) , Differential Total Cells Counted 100, Neutrophils % ( Manual) 87H, Lymphocytes % (Manual) 10L, Monocytes % (Manual) 1, Eosinophils % ( Manual) 2, Basophils % (Manual) 0, Band Neutrophils 0, Platelet Estimate DecreasedL, Platelet Morphology Normal, Hypochromasia 1+, Anisocytosis 1+, Sodium Level 142, Potassium Level 3.3L, Chloride Level 107, Carbon Dioxide Level 19L, Anion Gap 16H, Blood Urea Nitrogen 121H, Creatinine 7.0H, Estimat Glomerular Filtration Rate , Glucose Level 134H, Calcium Level 8.2L, Phosphorus Level 4.2, Magnesium Level 1.8 Height (Feet): 5 Height (Inches): 8.00 Weight (Pounds): 100 Cardiovascular: normal rate Respiratory/Chest: lungs clear Extremities: other - no edema MARVA MCGRATH Sep 01, 2017 13:06
--- NOTE | 2017-09-01 14:59 | Cardiac Electrophysiology PN ---
Assessment/Plan Assessment/Plan 1. Syncope, Likely due to dehydration and volume depletion. Echo NL EF 70% 2. Troponin leak, due to renal failure. 3. FTT 4. Renal failure. BUN 121 Cr 7. Follow up Dr Segovia.On iv fluid BOUCHRA RN Subjective Subjective Feeling better. Off restraints with sitter. No arrhythmias on tele. Transfer to [facility] pending Objective Last 24 Hour Vital Signs Date Time Temp Pulse Resp B/P (MAP) Pulse Ox O2 Delivery O2 Flow Rate FiO2 09/01/17 08:00 98.8 77 19 148/98 96 Room Air 09/01/17 08:00 72 09/01/17 04:00 96.8 71 18 140/83 96 Room Air 09/01/17 00:00 84 08/31/17 23:51 97.2 80 18 150/95 99 Room Air 08/31/17 20:00 97.0 83 18 107/79 94 Room Air 08/31/17 18:21 98.2 80 18 136/70 95 Room Air 08/31/17 15:58 78 Intake and Output 08/31/17 09/01/17 19:00 07:00 Intake Total 200 ml 1420 ml Output Total 700 ml Balance 200 ml 720 ml Intake Oral 320 ml IV Total 200 ml 1100 ml Output Urine Total 700 ml Laboratory Tests Test 09/01/17 07:30 White Blood Count 4.5 K/UL (4.8-10.8) L Red Blood Count 3.11 M/UL (4.70-6.10) L Hemoglobin 9.8 G/DL (14.2-18.0) L Hematocrit 30.6 % (42.0-52.0) L Mean Corpuscular Volume 99 FL (80-99) Mean Corpuscular Hemoglobin 31.5 PG (27.0-31.0) H Mean Corpuscular Hemoglobin Concent 32.0 G/DL (32.0-36.0) Red Cell Distribution Width 15.8 % (11.6-14.8) H Platelet Count 99 K/UL (150-450) L Mean Platelet Volume 8.4 FL (6.5-10.1) Neutrophils (%) (Auto) % (45.0-75.0) Lymphocytes (%) (Auto) % (20.0-45.0) Monocytes (%) (Auto) % (1.0-10.0) Eosinophils (%) (Auto) % (0.0-3.0) Basophils (%) (Auto) % (0.0-2.0) Differential Total Cells Counted 100 Neutrophils % (Manual) 87 % (45-75) H Lymphocytes % (Manual) 10 % (20-45) L Monocytes % (Manual) 1 % (1-10) Eosinophils % (Manual) 2 % (0-3) Basophils % (Manual) 0 % (0-2) Band Neutrophils 0 % (0-8) Platelet Estimate Decreased L Platelet Morphology Normal Hypochromasia 1+ Anisocytosis 1+ Sodium Level 142 MMOL/L (136-145) Potassium Level 3.3 MMOL/L (3.5-5.1) L Chloride Level 107 MMOL/L (98-107) Carbon Dioxide Level 19 MMOL/L (21-32) L Anion Gap 16 mmol/L (5-15) H Blood Urea Nitrogen 121 mg/dL (7-18) H Creatinine 7.0 MG/DL (0.55-1.30) H Estimat Glomerular Filtration Rate mL/min (>60) Glucose Level 134 MG/DL (74-106) H Calcium Level 8.2 MG/DL (8.5-10.1) L Phosphorus Level 4.2 MG/DL (2.5-4.9) Magnesium Level 1.8 MG/DL (1.8-2.4) Microbiology Date/Time Source Procedure Growth Status 08/31/17 06:00 Urine,Clean Catch Urine Culture - Preliminary NO GROWTH Resulted Objective HEENT: No JVD LUNGS: CLEAR CVS: RRR ABDOMEN: SOFT EXT: NO EDEMA LATASHA TOLEDO Sep 01, 2017 14:59
[2017-09-01 16:00] VITALS: BP 111/73
[2017-09-01] MEDS ORDERED: OLANZapine 2.5mg tab ORAL PRN (17:20)
[2017-09-01] MEDS ORDERED: LORazepam Inj 2mg/ml 1ml IM PRN (17:45)
--- NOTE | 2017-09-01 20:38 | General Progress Note ---
Assessment/Plan Problem List: (1) Acute renal failure Assessment & Plan: likely pre-renal ICD Codes: N17.9 - Acute kidney failure, unspecified SNOMED: 77493595 (2) Acute encephalopathy ICD Codes: G93.40 - Encephalopathy, unspecified SNOMED: 6183638 (3) Hypothyroidism ICD Codes: E03.9 - Hypothyroidism, unspecified SNOMED: 59804347 (4) Failure to thrive SNOMED: 41554613 Qualifiers: Qualified Codes: R62.7 - Adult failure to thrive (5) Severe protein-calorie malnutrition (Woodward: less than 60% of standard weight ) ICD Codes: E43 - Unspecified severe protein-calorie malnutrition SNOMED: 778431484 (6) Hyperkalemia ICD Codes: E87.5 - Hyperkalemia SNOMED: 00360010 (7) Underweight ICD Codes: R63.6 - Underweight SNOMED: 747476853 (8) Hypokalemia ICD Codes: E87.6 - Hypokalemia SNOMED: 16551881 (9) Folate deficiency ICD Codes: E53.8 - Deficiency of other specified B group vitamins SNOMED: 375931589 (10) Anemia of chronic disease ICD Codes: D63.8 - Anemia in other chronic diseases classified elsewhere SNOMED: 528824954 Status: stable Assessment/Plan Renal consulted Cont IVFs Trend BMP closely Cont moscoso for strict I/O's Strict I/O's, daily weights F/u renal U/S--> possible blood clot vs mass in bladder, mild b/l hydroureteronephrosis Urology consulted given hematuria and renal U/S findings Will likely need CT a/p and cystoscopy at some point per urology but can be done electively. Given plan for transfer to another hospital, will hold off for now Cardiology consulted F/u TTE--> EF 70% Endocrinology consulted given elevated TSH Cont synthroid 50mcg daily Cont folate 1mg daily as folate level low F/u Vit D level Financial Writer consulted Marinol 2.5mg TID Swallow eval--video swallow ordered SW consult for home safety eval and to locate family/friends if available. No family/friends found Psych consulted given agitation. Pt has no capacity to leave AMA at this time. Seroquel started Cont 1:1 sitter Per CM, pt's insurance requesting to transfer to another hospital. Pt is medically stable for transfer DVT ppx: SCDs FULL CODE per policy D/w pt, RN, SW/CM, renal, cardiology, endo regarding mgmt and dispo Subjective Date patient seen: Sep 01, 2017 Time patient seen: 12:00 ROS Limited/Unobtainable: Yes Allergies: Coded Allergies: No Known Allergies (Verified , 07/05/11) Subjective No acute o/n events SCr down to 7 UOP 1.1L Cont to be agitated. Sitter at bedside. Takes in PO when being fed. Confused ROS limited / AMS, agitation Objective Last 24 Hour Vital Signs Date Time Temp Pulse Resp B/P (MAP) Pulse Ox O2 Delivery O2 Flow Rate FiO2 09/01/17 16:00 97.1 73 19 111/73 96 Room Air 09/01/17 12:00 80 09/01/17 12:00 97.0 78 20 134/88 100 Room Air 09/01/17 08:00 98.8 77 19 148/98 96 Room Air 09/01/17 08:00 72 09/01/17 04:00 96.8 71 18 140/83 96 Room Air 09/01/17 00:00 84 08/31/17 23:51 97.2 80 18 150/95 99 Room Air Intake and Output 08/31/17 09/01/17 19:00 07:00 Intake Total 200 ml 1420 ml Output Total 700 ml Balance 200 ml 720 ml Intake Oral 320 ml IV Total 200 ml 1100 ml Output Urine Total 700 ml Laboratory Tests 09/01/17 07:30: White Blood Count 4.5L, Red Blood Count 3.11L, Hemoglobin 9.8L, Hematocrit 30.6L , Mean Corpuscular Volume 99, Mean Corpuscular Hemoglobin 31.5H, Mean Corpuscular Hemoglobin Concent 32.0, Red Cell Distribution Width 15.8H, Platelet Count 99L, Mean Platelet Volume 8.4, Neutrophils (%) (Auto) , Lymphocytes (%) (Auto) , Monocytes (%) (Auto) , Eosinophils (%) (Auto) , Basophils (%) (Auto) , Differential Total Cells Counted 100, Neutrophils % ( Manual) 87H, Lymphocytes % (Manual) 10L, Monocytes % (Manual) 1, Eosinophils % ( Manual) 2, Basophils % (Manual) 0, Band Neutrophils 0, Platelet Estimate DecreasedL, Platelet Morphology Normal, Hypochromasia 1+, Anisocytosis 1+, Sodium Level 142, Potassium Level 3.3L, Chloride Level 107, Carbon Dioxide Level 19L, Anion Gap 16H, Blood Urea Nitrogen 121H, Creatinine 7.0H, Estimat Glomerular Filtration Rate , Glucose Level 134H, Calcium Level 8.2L, Phosphorus Level 4.2, Magnesium Level 1.8 Height (Feet): 5 Height (Inches): 8.00 Weight (Pounds): 100 Objective General: alert, cooperative, no distress, appears stated age, cachectic Head: normocephalic, without obvious abnormality, atraumatic Eyes: conjunctivae/corneas clear. PERRL, EOM's intact Throat: lips, mucosa, and tongue normal. MMM Neck: supple, symmetrical, trachea midline, and no JVD Lungs: clear to auscultation bilaterally Heart: regular rate and rhythm, S1, S2 normal, no murmur, click, rub or gallop Abdomen: soft, non-tender, non-distended, bowel sounds normal Extremities: extremities normal, atraumatic, no cyanosis or edema Pulses: 2+ and symmetric Skin: skin color, texture, turgor normal; no rashes or lesions Neurologic: grossly normal, no focal deficits Tabatha Starr M.D. Sep 01, 2017 20:38
[2017-09-01 20:52] VITALS: BP 139/94
[2017-09-02 00:23] VITALS: BP 111/70
[2017-09-02 04:00] VITALS: BP 109/62
[2017-09-02] MEDS: D5 1/2NS 1,000 ML IV SCH ×3 (04:03→23:11)
[2017-09-02 08:00] VITALS: BP 131/79
[2017-09-02 08:18] LABS: ANION GAP 13 mmol/L (5-15); BLOOD UREA NITROGEN 109 mg/dL (7-18); CALCIUM 7.9 MG/DL (8.5-10.1); CARBON DIOXIDE 20 MMOL/L (21-32); CHLORIDE 108 MMOL/L (98-107); CREATININE 6.4 MG/DL (0.55-1.30); SODIUM 141 MMOL/L (136-145)
[2017-09-02 08:38] LABS: HEMATOCRIT 29.6 % (42.0-52.0); HEMOGLOBIN 9.6 G/DL (14.2-18.0); MEAN CORPUSCULAR VOLUME 96 FL (80-99); PLATELET COUNT 76 K/UL (150-450); RED BLOOD COUNT 3.09 M/UL (4.70-6.10); RED CELL DISTRIBUTION WIDTH 15.5 % (11.6-14.8); WHITE BLOOD COUNT 4.6 K/UL (4.8-10.8)
[2017-09-02] MEDS: Dronabinol 2.5mg Cap ORAL SCH ×3 (08:58→17:27)
--- NOTE | 2017-09-02 09:27 | Urology Progress Note ---
Assessment/Plan Assessment/Plan urinary retention BPH hx probable neurogenic bladder hematuria renal insufficiency, acute on chronic, slowly improving hydro pyuria proteinuria keep moscoso hand irrigated, no clots consider CT check serum PSA cysto later pt to be transferred to another hosp d/w pt's family, requesting to [facility] Subjective Allergies: Coded Allergies: No Known Allergies (Verified , 07/05/11) Subjective looks comfortable Objective Last 24 Hour Vital Signs Date Time Temp Pulse Resp B/P (MAP) Pulse Ox O2 Delivery O2 Flow Rate FiO2 09/02/17 04:00 97.7 94 18 109/62 100 Room Air 09/02/17 00:23 97.2 102 20 111/70 100 Room Air 09/01/17 20:52 97.4 20 139/94 100 Room Air 09/01/17 20:52 66 09/01/17 16:00 97.1 73 19 111/73 96 Room Air 09/01/17 12:00 80 09/01/17 12:00 97.0 78 20 134/88 100 Room Air Intake and Output 09/01/17 09/02/17 19:00 07:00 Intake Total 1000 ml 710 ml Output Total 750 ml Balance 1000 ml -40 ml Intake Oral 10 ml IV Total 1000 ml 700 ml Output Urine Total 750 ml Microbiology Date/Time Source Procedure Growth Status 08/31/17 06:00 Urine,Clean Catch Urine Culture - Preliminary NO GROWTH Resulted Current Medications Medications (Trade) Dose Ordered Sig/Saud Route PRN Reason Start Time Stop Time Status Last Admin Dose Admin Dextrose/Sodium Chloride 1,000 ml @ 100 mls/hr Q10H IV 09/01/17 17:15 09/29/17 13:29 09/02/17 04:03 Dronabinol (Marinol) 2.5 mg TID ORAL 09/01/17 18:00 09/29/17 17:59 09/02/17 08:58 Folic Acid (Folate) 1 mg DAILY ORAL 09/02/17 09:00 09/29/17 13:59 09/02/17 08:58 Lorazepam (Ativan 2mg/ml 1ml) 0.5 mg Q6H PRN IM agitation/restlessness 09/01/17 17:45 09/07/17 11:44 09/02/17 00:39 Olanzapine (ZyPREXA) 2.5 mg EVERY 4 HOURS PRN ORAL agitation 2/3/18 17:20 09/30/17 17:19 Olanzapine (ZyPREXA) 5 mg BEDTIME ORAL 09/01/17 21:00 09/30/17 20:59 09/01/17 20:50 Pantoprazole (Protonix) 40 mg DAILY ORAL 09/02/17 09:00 09/29/17 13:59 09/02/17 08:58 Laboratory Tests 09/02/17 05:32: White Blood Count 4.6L, Red Blood Count 3.09L, Hemoglobin 9.6L, Hematocrit 29.6L , Mean Corpuscular Volume 96, Mean Corpuscular Hemoglobin 31.0, Mean Corpuscular Hemoglobin Concent 32.4, Red Cell Distribution Width 15.5H, Platelet Count 76L, Mean Platelet Volume 10.9H, Neutrophils (%) (Auto) , Lymphocytes (%) (Auto) , Monocytes (%) (Auto) , Eosinophils (%) (Auto) , Basophils (%) (Auto) , Differential Total Cells Counted 100, Neutrophils % ( Manual) 84H, Lymphocytes % (Manual) 9L, Monocytes % (Manual) 6, Eosinophils % ( Manual) 1, Basophils % (Manual) 0, Band Neutrophils 0, Platelet Estimate DecreasedL, Platelet Morphology Normal, Hypochromasia 1+, Anisocytosis 1+, Sodium Level 141, Potassium Level 3.0L, Chloride Level 108H, Carbon Dioxide Level 20L, Anion Gap 13, Blood Urea Nitrogen 109H, Creatinine 6.4H, Estimat Glomerular Filtration Rate , Glucose Level 108H, Calcium Level 7.9L Height (Feet): 5 Height (Inches): 8.00 Weight (Pounds): 100 Objective exam stable, urine is clearing MANISH MORAN Sep 02, 2017 09:27
--- NOTE | 2017-09-02 10:18 | Nephrology Progress Note ---
Assessment/Plan Problem List: (1) ARF (acute renal failure) Assessment: slightly better (2) Protein calorie malnutrition (3) Anemia of chronic disease (4) Failure to thrive (5) Hypothyroid (6) Hypokalemia Plan IVF Replete K follow labs Nutritional support Subjective Subjective In NAD Objective Objective Last 24 Hour Vital Signs Date Time Temp Pulse Resp B/P (MAP) Pulse Ox O2 Delivery O2 Flow Rate FiO2 09/02/17 08:00 86.4 60 18 131/79 100 09/02/17 04:00 97.7 94 18 109/62 100 Room Air 09/02/17 00:23 97.2 102 20 111/70 100 Room Air 09/01/17 20:52 97.4 20 139/94 100 Room Air 09/01/17 20:52 66 09/01/17 16:00 97.1 73 19 111/73 96 Room Air 09/01/17 12:00 80 09/01/17 12:00 97.0 78 20 134/88 100 Room Air Intake and Output 09/01/17 09/02/17 19:00 07:00 Intake Total 1000 ml 710 ml Output Total 750 ml Balance 1000 ml -40 ml Intake Oral 10 ml IV Total 1000 ml 700 ml Output Urine Total 750 ml Laboratory Tests 09/02/17 05:32: White Blood Count 4.6L, Red Blood Count 3.09L, Hemoglobin 9.6L, Hematocrit 29.6L , Mean Corpuscular Volume 96, Mean Corpuscular Hemoglobin 31.0, Mean Corpuscular Hemoglobin Concent 32.4, Red Cell Distribution Width 15.5H, Platelet Count 76L, Mean Platelet Volume 10.9H, Neutrophils (%) (Auto) , Lymphocytes (%) (Auto) , Monocytes (%) (Auto) , Eosinophils (%) (Auto) , Basophils (%) (Auto) , Differential Total Cells Counted 100, Neutrophils % ( Manual) 84H, Lymphocytes % (Manual) 9L, Monocytes % (Manual) 6, Eosinophils % ( Manual) 1, Basophils % (Manual) 0, Band Neutrophils 0, Platelet Estimate DecreasedL, Platelet Morphology Normal, Hypochromasia 1+, Anisocytosis 1+, Sodium Level 141, Potassium Level 3.0L, Chloride Level 108H, Carbon Dioxide Level 20L, Anion Gap 13, Blood Urea Nitrogen 109H, Creatinine 6.4H, Estimat Glomerular Filtration Rate , Glucose Level 108H, Calcium Level 7.9L Height (Feet): 5 Height (Inches): 8.00 Weight (Pounds): 100 Cardiovascular: normal rate Respiratory/Chest: lungs clear Extremities: other - no edema MARVA MCGRATH Sep 02, 2017 10:18
[2017-09-02] MEDS ORDERED: D5 1/2NS 1000ml IV ONE ×3 (10:24→15:48)
[2017-09-02 12:00] VITALS: BP 135/56
[2017-09-02] MEDS ORDERED: Sterile Water Irrig 1000ml IRRIG ONE (13:43)
--- NOTE | 2017-09-02 13:50 | General Progress Note ---
Assessment/Plan Problem List: (1) Acute renal failure Assessment & Plan: likely pre-renal ICD Codes: N17.9 - Acute kidney failure, unspecified SNOMED: 83451000 (2) Acute encephalopathy ICD Codes: G93.40 - Encephalopathy, unspecified SNOMED: 4934950 (3) Hypothyroidism ICD Codes: E03.9 - Hypothyroidism, unspecified SNOMED: 53813912 (4) Failure to thrive SNOMED: 22320695 Qualifiers: Qualified Codes: R62.7 - Adult failure to thrive (5) Severe protein-calorie malnutrition (Woodward: less than 60% of standard weight ) ICD Codes: E43 - Unspecified severe protein-calorie malnutrition SNOMED: 089530744 (6) Hyperkalemia ICD Codes: E87.5 - Hyperkalemia SNOMED: 20186165 (7) Underweight ICD Codes: R63.6 - Underweight SNOMED: 773934749 (8) Hypokalemia ICD Codes: E87.6 - Hypokalemia SNOMED: 26590459 (9) Folate deficiency ICD Codes: E53.8 - Deficiency of other specified B group vitamins SNOMED: 500065162 (10) Anemia of chronic disease ICD Codes: D63.8 - Anemia in other chronic diseases classified elsewhere SNOMED: 032267747 Status: stable Assessment/Plan Renal consulted Cont IVFs Trend BMP closely Cont moscoso for strict I/O's Strict I/O's, daily weights F/u renal U/S--> possible blood clot vs mass in bladder, mild b/l hydroureteronephrosis Urology consulted given hematuria and renal U/S findings Will likely need CT a/p and cystoscopy at some point per urology but can be done electively. Given plan for transfer to another hospital, will hold off for now Cardiology consulted F/u TTE--> EF 70% Endocrinology consulted given elevated TSH Cont synthroid 50mcg daily Cont folate 1mg daily as folate level low F/u Vit D level Proof Coin Collector consulted Marinol 2.5mg TID Swallow eval--video swallow ordered SW consult for home safety eval and to locate family/friends if available. No family/friends found Psych consulted given agitation. Pt has no capacity to leave AMA at this time. Seroquel started Cont 1:1 sitter Per CM, pt's insurance requesting to transfer to another hospital. Pt is medically stable for transfer DVT ppx: SCDs FULL CODE per policy D/w pt, RN, SW/CM, renal, cardiology, endo regarding mgmt and dispo Subjective Date patient seen: Sep 02, 2017 Time patient seen: 10:00 ROS Limited/Unobtainable: Yes Allergies: Coded Allergies: No Known Allergies (Verified , 07/05/11) Subjective No acute o/n events SCr down to 6.4 UOP 750mL Hypokalemic to 3.0, being repleted Awaiting transfer to another hospital per insurance request Less agitated. Sitter at bedside. Takes in PO when being fed. Confused ROS limited 2/ AMS, agitation Objective Last 24 Hour Vital Signs Date Time Temp Pulse Resp B/P (MAP) Pulse Ox O2 Delivery O2 Flow Rate FiO2 09/02/17 12:00 86.2 72 18 135/56 100 09/02/17 08:00 86.4 60 18 131/79 100 09/02/17 04:00 97.7 94 18 109/62 100 Room Air 09/02/17 00:23 97.2 102 20 111/70 100 Room Air 09/01/17 20:52 97.4 20 139/94 100 Room Air 09/01/17 20:52 66 09/01/17 16:00 97.1 73 19 111/73 96 Room Air Intake and Output 09/01/17 09/02/17 19:00 07:00 Intake Total 1000 ml 710 ml Output Total 750 ml Balance 1000 ml -40 ml Intake Oral 10 ml IV Total 1000 ml 700 ml Output Urine Total 750 ml Laboratory Tests 09/02/17 05:32: White Blood Count 4.6L, Red Blood Count 3.09L, Hemoglobin 9.6L, Hematocrit 29.6L , Mean Corpuscular Volume 96, Mean Corpuscular Hemoglobin 31.0, Mean Corpuscular Hemoglobin Concent 32.4, Red Cell Distribution Width 15.5H, Platelet Count 76L, Mean Platelet Volume 10.9H, Neutrophils (%) (Auto) , Lymphocytes (%) (Auto) , Monocytes (%) (Auto) , Eosinophils (%) (Auto) , Basophils (%) (Auto) , Differential Total Cells Counted 100, Neutrophils % ( Manual) 84H, Lymphocytes % (Manual) 9L, Monocytes % (Manual) 6, Eosinophils % ( Manual) 1, Basophils % (Manual) 0, Band Neutrophils 0, Platelet Estimate DecreasedL, Platelet Morphology Normal, Hypochromasia 1+, Anisocytosis 1+, Sodium Level 141, Potassium Level 3.0L, Chloride Level 108H, Carbon Dioxide Level 20L, Anion Gap 13, Blood Urea Nitrogen 109H, Creatinine 6.4H, Estimat Glomerular Filtration Rate , Glucose Level 108H, Calcium Level 7.9L Height (Feet): 5 Height (Inches): 8.00 Weight (Pounds): 100 Objective General: alert, cooperative, no distress, appears stated age, cachectic Head: normocephalic, without obvious abnormality, atraumatic Eyes: conjunctivae/corneas clear. PERRL, EOM's intact Throat: lips, mucosa, and tongue normal. MMM Neck: supple, symmetrical, trachea midline, and no JVD Lungs: clear to auscultation bilaterally Heart: regular rate and rhythm, S1, S2 normal, no murmur, click, rub or gallop Abdomen: soft, non-tender, non-distended, bowel sounds normal Extremities: extremities normal, atraumatic, no cyanosis or edema Pulses: 2+ and symmetric Skin: skin color, texture, turgor normal; no rashes or lesions Neurologic: grossly normal, no focal deficits Tabatha Starr M.D. Sep 02, 2017 13:50
[2017-09-02 16:00] VITALS: BP 135/74
--- NOTE | 2017-09-02 16:56 | Cardiology Report ---
APPROVED REPORT EKG Measurement Heart [id number] Sinus rhythm with premature atrial complexes Septal infarct, age undetermined Abnormal ECG
--- NOTE | 2017-09-02 17:02 | Cardiology Report ---
APPROVED REPORT EKG Measurement Heart [id number] Normal sinus rhythm Septal infarct, age undetermined Abnormal ECG
[2017-09-02 20:00] VITALS: BP 126/85
--- NOTE | 2017-09-02 23:05 | Consultation ---
DATE OF CONSULTATION: 08/31/2017 CONSULTING PHYSICIAN: Lorenzo Ryder M.D. REFERRING PHYSICIAN: Tabatha Starr M.D. REASON FOR CONSULTATION: Evaluation of hematuria. HISTORY OF PRESENT ILLNESS: This is a 77-year-old gentleman who was brought to the emergency room because he was found down in his apartment, has been losing weight and becoming weak. He is a very poor historian. A Houser catheter has been placed. He had some hematuria, which is clearing. He was also noted to be in renal failure. Baseline kidney function is unknown. PAST MEDICAL HISTORY: Unable to obtain from the patient. Most of the history was obtained from the chart. Basically as above. PAST SURGICAL HISTORY: Unknown. CURRENT MEDICATIONS: Noted. ALLERGIES: No allergies. PHYSICAL EXAMINATION: GENERAL: Cachectic male. VITAL SIGNS: Stable. GENITOURINARY: Houser is in place. Urine is slightly blood tinged, but it is clearing. LABORATORY DATA: Reviewed. His UA showed 5 to 10 WBCs, too numerous to count RBCs, 4+ protein. His white count is 4.4, hemoglobin is 10.3, BUN is 123 and creatinine is 7.9. His creatinine was 9.1 on admission. IMAGING STUDIES: The patient had a renal ultrasound and there was mild bilateral hydronephrosis. There was mention of heterogeneous structure in the bladder, either a clot or possibly a neoplasm. IMPRESSION: 1. Urinary retention. 2. Benign prostatic hypertrophy history. 3. Probable neurogenic bladder. 4. Hematuria. 5. Renal insufficiency, acute versus chronic. 6. Hydronephrosis. 7. Pyuria. 8. Proteinuria. PLAN/DISCUSSION: Case was discussed with the primary physician. Houser will be kept indwelling. Renal functions to be monitored and is still improving. Apparently, the patient is to be transferred to another facility because of insurance reasons. He will need to have a workup, which can be done electively. I would consider doing a CT scan and a cystoscopy once more medically stabilize. Also, I would consider obtaining a serum PSA. Lorenzo Ryder M.D. DR: BRANDON JOB#: [id number] CC:
[2017-09-03] VITALS: BP 117/75
[2017-09-03 04:00] VITALS: BP 118/75
[2017-09-03 08:03] LABS: ANION GAP 16 mmol/L (5-15); BLOOD UREA NITROGEN 103 mg/dL (7-18); CALCIUM 7.7 MG/DL (8.5-10.1); CARBON DIOXIDE 18 MMOL/L (21-32); CHLORIDE 107 MMOL/L (98-107); POTASSIUM 3.3 MMOL/L (3.5-5.1); SODIUM 141 MMOL/L (136-145)
[2017-09-03] MEDS: Dronabinol 2.5mg Cap ORAL SCH ×3 (08:31→17:15)
[2017-09-03] MEDS: D5 1/2NS 1,000 ML IV SCH ×2 (08:32→17:16)
[2017-09-03 08:41] VITALS: BP 118/75
--- NOTE | 2017-09-03 10:08 | Urology Progress Note ---
Assessment/Plan Assessment/Plan urinary retention BPH hx probable neurogenic bladder hematuria renal insufficiency, acute on chronic, slowly improving hydro pyuria proteinuria keep moscoso hand irrigated, no clots consider CT check serum PSA cysto later pt to be transferred to another [facility] pt's family [facility] Subjective Allergies: Coded Allergies: No Known Allergies (Verified , 07/05/11) Subjective looks comfortable, awaiting placement Objective Last 24 Hour Vital Signs Date Time Temp Pulse Resp B/P (MAP) Pulse Ox O2 Delivery O2 Flow Rate FiO2 09/03/17 08:41 60 18 118/75 100 Room Air 09/03/17 04:00 Room Air 09/03/17 04:00 97.8 58 18 118/75 100 09/03/17 00:00 Room Air 09/03/17 00:00 97.5 75 18 117/75 97 09/02/17 20:00 Room Air 09/02/17 20:00 97.2 63 18 126/85 100 09/02/17 16:00 97.0 70 19 135/74 97 Room Air 09/02/17 12:00 86.2 72 18 135/56 100 Intake and Output 09/02/17 09/03/17 19:00 07:00 Intake Total 1275 ml 1000 ml Output Total 600 ml 600 ml Balance 675 ml 400 ml Intake Oral 75 ml IV Total 1200 ml 1000 ml Output Urine Total 600 ml 600 ml Microbiology Date/Time Source Procedure Growth Status 08/31/17 06:00 Urine,Clean Catch Urine Culture - Final NO GROWTH AFTER 48 HOURS Complete Current Medications Medications (Trade) Dose Ordered Sig/Saud Route PRN Reason Start Time Stop Time Status Last Admin Dose Admin Dextrose/Sodium Chloride 1,000 ml @ 100 mls/hr Q10H IV 09/01/17 17:15 09/29/17 13:29 09/03/17 08:32 Dronabinol (Marinol) 2.5 mg TID ORAL 09/01/17 18:00 09/29/17 17:59 09/03/17 08:31 Folic Acid (Folate) 1 mg DAILY ORAL 09/02/17 09:00 09/29/17 13:59 09/03/17 08:30 Lorazepam (Ativan 2mg/ml 1ml) 0.5 mg Q6H PRN IM agitation/restlessness 2/3/18 17:45 09/07/17 11:44 09/02/17 00:39 Olanzapine (ZyPREXA) 2.5 mg EVERY 4 HOURS PRN ORAL agitation 09/01/17 17:20 09/30/17 17:19 Olanzapine (ZyPREXA) 5 mg BEDTIME ORAL 09/01/17 21:00 09/30/17 20:59 09/02/17 21:01 Pantoprazole (Protonix) 40 mg DAILY ORAL 09/02/17 09:00 09/29/17 13:59 09/03/17 08:30 Laboratory Tests 09/03/17 05:15: Sodium Level 141, Potassium Level 3.3L, Chloride Level 107, Carbon Dioxide Level 18L, Anion Gap 16H, Blood Urea Nitrogen 103H, Creatinine 6.0H, Estimat Glomerular Filtration Rate , Glucose Level 84, Calcium Level 7.7L, Magnesium Level 1.3L Height (Feet): 5 Height (Inches): 8.00 Weight (Pounds): 100 Objective exam stable, urine is clearing MANISH MORAN Sep 03, 2017 10:07
--- NOTE | 2017-09-03 10:23 | Nephrology Progress Note ---
Assessment/Plan Problem List: (1) ARF (acute renal failure) (2) CKD (chronic kidney disease) (3) Anemia of chronic disease (4) Severe protein-calorie malnutrition (Woodward: less than 60% of standard weight ) (5) Failure to thrive (6) Hypothyroid Assessment acute renal failure- high K Urinary out let obstruction- 450 cc Urine after moscoso Underlying CKD Anemia Malnutrition, FTT HypoThyroid Plan folate- Vit D- EPO- K supplement Moscoso- IV fluid- Monitor renal parameters avoid nephro toxics improve nutrition check PSA and Testosterone NOMI Kidney: Moscoso catheter noted in the bladder. Heterogeneous structure within the bladder possibly representing blood clot given history of hematuria. Neoplasm or additional etiologies not excluded. Mild bilateral hydroureteronephrosis, possibly related to obstruction from described bladder lesion. Subjective ROS Limited/Unobtainable: No Constitutional: Reports: malaise, weakness Objective Objective Last 24 Hour Vital Signs Date Time Temp Pulse Resp B/P (MAP) Pulse Ox O2 Delivery O2 Flow Rate FiO2 09/03/17 08:41 60 18 118/75 100 Room Air 09/03/17 04:00 Room Air 09/03/17 04:00 97.8 58 18 118/75 100 09/03/17 00:00 Room Air 09/03/17 00:00 97.5 75 18 117/75 97 09/02/17 20:00 Room Air 09/02/17 20:00 97.2 63 18 126/85 100 09/02/17 16:00 97.0 70 19 135/74 97 Room Air 09/02/17 12:00 86.2 72 18 135/56 100 Intake and Output 09/02/17 09/03/17 19:00 07:00 Intake Total 1275 ml 1000 ml Output Total 600 ml 600 ml Balance 675 ml 400 ml Intake Oral 75 ml IV Total 1200 ml 1000 ml Output Urine Total 600 ml 600 ml Laboratory Tests 09/03/17 05:15: Sodium Level 141, Potassium Level 3.3L, Chloride Level 107, Carbon Dioxide Level 18L, Anion Gap 16H, Blood Urea Nitrogen 103H, Creatinine 6.0H, Estimat Glomerular Filtration Rate , Glucose Level 84, Calcium Level 7.7L, Phosphorus Level [Pending], Magnesium Level 1.3L, Total Bilirubin [Pending], Direct Bilirubin [Pending], Aspartate Amino Transf (AST/SGOT) [Pending], Alanine Aminotransferase (ALT/SGPT) [Pending], Alkaline Phosphatase [Pending], C- Reactive Protein, Quantitative [Pending], Total Protein [Pending], Albumin [ Pending] Height (Feet): 5 Height (Inches): 8.00 Weight (Pounds): 100 General Appearance: no apparent distress, lethargic Cardiovascular: bradycardia Respiratory/Chest: decreased breath sounds Abdomen: soft FAHEEM PRINGLE Sep 03, 2017 10:23
[2017-09-03 10:29] LABS: ALANINE AMINOTRANSFERASE 14 U/L (12-78); ALBUMIN 2.3 G/DL (3.4-5.0); ALKALINE PHOSPHATASE 54 U/L (46-116); ASPARTATE AMINO TRANSFERASE 18 U/L (15-37); BILIRUBIN,DIRECT < 0.1 MG/DL (0.0-0.3); BILIRUBIN,TOTAL 0.2 MG/DL (0.2-1.0); PHOSPHORUS 3.7 MG/DL (2.5-4.9)
--- NOTE | 2017-09-03 10:53 | Cardiology Report ---
APPROVED REPORT EXAM: Two-dimensional and M-mode echocardiogram with Doppler and color Doppler. INDICATION OTHER M-Mode DIMENSIONS IVSd0.8 (0.7-1.1cm)Left Atrium (MM)3.9 (1.6-4.0cm) LVDd4.0 (3.5-5.6cm)Aortic Root3.7 (2.0-3.7cm) PWd1.1 (0.7-1.1cm)Aortic Cusp Exc.1.8 (1.5-2.0cm) IVSs1.7 cm LVDs2.3 (2.5-4.0cm) PWs1.1 cm Normal left ventricular chamber size, systolic function and wall motion . Left ventricular ejection fraction estimated to be 70 %. Mild left ventricular hypertrophy. No evidence of pericardial effusion. All other cardiac chamber sizes are within normal limits. Focal aortic valve sclerosis with adequate cusp excursion. Thickened mitral valve leaflets with normal excursion. Mitral annulus and aortic root calcification. Normal pulmonic valve structure . Normal tricuspid valve structure. IVC at normal size without physiologic collapse. A color flow and spectral Doppler study was performed and revealed: Mild aortic regurgitation. Mild mitral regurgitation. Mitral diastolic velocities suggest reduced left ventricular relaxation c/w mild LV diastolic dysfunction (Grade I ). Mild tricuspid regurgitation. Tricuspid systolic velocities suggests peak right ventricular systolic pressure of 24 mmHg. No Pulmonic regurgitation present.
--- NOTE | 2017-09-03 11:46 | Cardiac Electrophysiology PN ---
Assessment/Plan Assessment/Plan 1. Syncope, Likely due to dehydration and volume depletion. Echo NL EF 70% 2. Troponin leak, due to renal failure. 3. FTT 4. Renal failure. Improved to BUN 103 Cr 6. Follow up [address] Segovia.On iv fluid 5. Dementia DW RN Subjective Subjective Feeling better.No chest pain or SOB.Transferred to [facility] Objective Last 24 Hour Vital Signs Date Time Temp Pulse Resp B/P (MAP) Pulse Ox O2 Delivery O2 Flow Rate FiO2 09/03/17 08:41 60 18 118/75 100 Room Air 09/03/17 04:00 Room Air 09/03/17 04:00 97.8 58 18 118/75 100 09/03/17 00:00 Room Air 09/03/17 00:00 97.5 75 18 117/75 97 09/02/17 20:00 Room Air 09/02/17 20:00 97.2 63 18 126/85 100 09/02/17 16:00 97.0 70 19 135/74 97 Room Air 09/02/17 12:00 86.2 72 18 135/56 100 Intake and Output 09/02/17 09/03/17 19:00 07:00 Intake Total 1275 ml 1000 ml Output Total 600 ml 600 ml Balance 675 ml 400 ml Intake Oral 75 ml IV Total 1200 ml 1000 ml Output Urine Total 600 ml 600 ml Laboratory Tests Test 09/03/17 05:15 Sodium Level 141 MMOL/L (136-145) Potassium Level 3.3 MMOL/L (3.5-5.1) L Chloride Level 107 MMOL/L (98-107) Carbon Dioxide Level 18 MMOL/L (21-32) L Anion Gap 16 mmol/L (5-15) H Blood Urea Nitrogen 103 mg/dL (7-18) H Creatinine 6.0 MG/DL (0.55-1.30) H Estimat Glomerular Filtration Rate mL/min (>60) Glucose Level 84 MG/DL (74-106) Calcium Level 7.7 MG/DL (8.5-10.1) L Phosphorus Level 3.7 MG/DL (2.5-4.9) Magnesium Level 1.3 MG/DL (1.8-2.4) L Total Bilirubin 0.2 MG/DL (0.2-1.0) Direct Bilirubin < 0.1 MG/DL (0.0-0.3) Aspartate Amino Transf (AST/SGOT) 18 U/L (15-37) Alanine Aminotransferase (ALT/SGPT) 14 U/L (12-78) Alkaline Phosphatase 54 U/L (46-116) C-Reactive Protein, Quantitative 14.8 mg/dL (0.00-0.90) H Total Protein 6.2 G/DL (6.4-8.2) L Albumin 2.3 G/DL (3.4-5.0) L Objective HEENT: No JVD LUNGS: CLEAR CVS: RRR ABDOMEN: SOFT EXT: NO EDEMA LATASHA TOLEDO Sep 03, 2017 11:46
[2017-09-03 12:00] VITALS: BP 112/78
--- NOTE | 2017-09-03 13:03 | Wound Care Consultation ---
Wound Assessment Wound Assessment #1: Wound Number: 1 Wound Present on Admission: No New Wound: Yes Status Change of Wound: No Wound Location Body Site Modif: left Wound Location Body Site: trochanter Wound Type: pressure ulcer Heather Test: Does not Heather Pressure Ulcer Stage: II - scattered Wound Thickness: Partial Thickness Wound Length: 2.0 Wound Width: 1.5 Wound Depth: less than 0.1 Percent of Wound [place]/Red: 100 Wound Drainage Description: Serosanguineous Wound Drainage Amount: Scant Wound Drainage Odor: None/Absent Tissue Surrounding Wound: Erythemic Wound General Appearance: Reddened Wound Assessment #2: Wound Number: 2 Wound Present on Admission: No New Wound: Yes Status Change of Wound: No Wound Location Body Site Modif: mid Wound Location Body Site: sacral Wound Type: pressure ulcer Heather Test: Does not Heather Pressure Ulcer Stage: II Wound Thickness: Partial Thickness Wound Length: 1.0 Wound Width: 1.0 Wound Depth: less than 0.1 Percent of Wound [place]/Red: 100 Wound Drainage Description: Serosanguineous Wound Drainage Amount: Scant Wound Drainage Odor: None/Absent Tissue Surrounding Wound: Erythemic Wound General Appearance: Reddened Wound Comment #1 Left trochanter scattered stage II pressure ulcer #2 Sacral stage II pressure ulcer Recommendation -Local wound care per protocol -Keep clean and dry -Turn and reposition -Offload both heels -Heel protector on both heels -Optimize nutrition -Low air loss mattress -Assess f/u accordingly for any changes TASHA ANDINO RN Sep 03, 2017 13:03
[2017-09-03 16:00] VITALS: BP 109/65
[2017-09-03] MEDS ORDERED: Vitamin D 50,000 units cap ORAL SCH (18:00)
[2017-09-03] MEDS ORDERED: D5 1/2NS 1000ml IV ONE (19:00)
--- NOTE | 2017-09-03 19:52 | General Progress Note ---
Assessment/Plan Problem List: (1) Hypothyroid ICD Codes: E03.9 - Hypothyroidism, unspecified SNOMED: 11969226 Qualifiers: Qualified Codes: E03.9 - Hypothyroidism, unspecified (2) Renal failure ICD Codes: N19 - Unspecified kidney failure SNOMED: 26867356 Qualifiers: Qualified Codes: N17.9 - Acute kidney failure, unspecified (3) Failure to thrive SNOMED: 23806690 Qualifiers: Qualified Codes: R62.7 - Adult failure to thrive (4) Hyperkalemia ICD Codes: E87.5 - Hyperkalemia SNOMED: 44757975 (5) Protein calorie malnutrition ICD Codes: E46 - Unspecified protein-calorie malnutrition SNOMED: 156183446 Qualifiers: Qualified Codes: E43 - Unspecified severe protein-calorie malnutrition Assessment/Plan continue Levothyroxine 50 mcg daily repeat thyroid function as OP in 3-4 weeks - I sign off Subjective ROS Limited/Unobtainable: Yes Allergies: Coded Allergies: No Known Allergies (Verified , 07/05/11) Subjective events noted - interval notes reviewed Objective Last 24 Hour Vital Signs Date Time Temp Pulse Resp B/P (MAP) Pulse Ox O2 Delivery O2 Flow Rate FiO2 09/03/17 16:00 97.4 60 18 109/65 92 Room Air 09/03/17 12:00 18 112/78 92 Room Air 09/03/17 08:41 60 18 118/75 100 Room Air 09/03/17 04:00 Room Air 09/03/17 04:00 97.8 58 18 118/75 100 09/03/17 00:00 Room Air 09/03/17 00:00 97.5 75 18 117/75 97 09/02/17 20:00 Room Air 09/02/17 20:00 97.2 63 18 126/85 100 Intake and Output 09/02/17 09/03/17 19:00 07:00 Intake Total 1275 ml 1000 ml Output Total 600 ml 600 ml Balance 675 ml 400 ml Intake Oral 75 ml IV Total 1200 ml 1000 ml Output Urine Total 600 ml 600 ml Laboratory Tests 09/03/17 05:15: Sodium Level 141, Potassium Level 3.3L, Chloride Level 107, Carbon Dioxide Level 18L, Anion Gap 16H, Blood Urea Nitrogen 103H, Creatinine 6.0H, Estimat Glomerular Filtration Rate , Glucose Level 84, Calcium Level 7.7L, Phosphorus Level 3.7, Magnesium Level 1.3L, Total Bilirubin 0.2, Direct Bilirubin < 0.1, Aspartate Amino Transf (AST/SGOT) 18, Alanine Aminotransferase (ALT/SGPT) 14, Alkaline Phosphatase 54, C-Reactive Protein, Quantitative 14.8H, Total Protein 6.2L, Albumin 2.3L Height (Feet): 5 Height (Inches): 8.00 Weight (Pounds): 100 General Appearance: no apparent distress Neck: normal alignment Cardiovascular: regular rhythm Respiratory/Chest: decreased breath sounds Abdomen: normal bowel sounds Edema: no edema noted Arm (L), no edema noted Arm (R), no edema noted Leg (L), no edema noted Leg (R), no edema noted Pedal (L), no edema noted Pedal (R), no edema noted Generalized Objective Current Medications Medications (Trade) Dose Ordered Sig/Saud Route PRN Reason Start Time Stop Time Status Last Admin Dose Admin Dextrose/Sodium Chloride 1,000 ml @ 100 mls/hr Q10H IV 09/01/17 17:15 09/29/17 13:29 09/03/17 17:16 Dronabinol (Marinol) 2.5 mg TID ORAL 09/01/17 18:00 09/29/17 17:59 09/03/17 17:15 Epoetin Gume (Procrit (for non ESRD use)) 10,000 units SUN-WED-SUN SUBQ 09/03/17 21:00 10/03/17 20:59 Ergocalciferol (Drisdol) 50,000 intlu QWEEK ORAL 09/03/17 18:00 10/03/17 17:59 Folic Acid (Folate) 5 mg DAILY ORAL 09/03/17 11:00 10/03/17 10:59 09/03/17 11:40 Lorazepam (Ativan 2mg/ml 1ml) 0.5 mg Q6H PRN IM agitation/restlessness 09/01/17 17:45 09/07/17 11:44 09/02/17 00:39 Olanzapine (ZyPREXA) 2.5 mg EVERY 4 HOURS PRN ORAL agitation 09/01/17 17:20 09/30/17 17:19 Olanzapine (ZyPREXA) 5 mg BEDTIME ORAL 09/01/17 21:00 09/30/17 20:59 09/02/17 21:01 Pantoprazole (Protonix) 40 mg DAILY ORAL 09/02/17 09:00 09/29/17 13:59 09/03/17 08:30 Potassium Chloride (K-Dur) 20 meq TWICE A DAY ORAL 09/03/17 11:00 09/04/17 10:59 09/03/17 17:16 CLARISSA BHARDWAJ Sep 03, 2017 19:52
[2017-09-03 20:36] VITALS: BP 118/73
[2017-09-03] MEDS ORDERED: Epogen (for non ESRD use) SUBQ SCH (21:00)
--- NOTE | 2017-09-03 22:43 | General Progress Note ---
Assessment/Plan Problem List: (1) Acute renal failure Assessment & Plan: likely pre-renal ICD Codes: N17.9 - Acute kidney failure, unspecified SNOMED: 95643115 (2) Acute encephalopathy ICD Codes: G93.40 - Encephalopathy, unspecified SNOMED: 8927161 (3) Hypothyroidism ICD Codes: E03.9 - Hypothyroidism, unspecified SNOMED: 26855068 (4) Failure to thrive SNOMED: 38095695 Qualifiers: Qualified Codes: R62.7 - Adult failure to thrive (5) Severe protein-calorie malnutrition (Woodward: less than 60% of standard weight ) ICD Codes: E43 - Unspecified severe protein-calorie malnutrition SNOMED: 833789563 (6) Hyperkalemia ICD Codes: E87.5 - Hyperkalemia SNOMED: 81086931 (7) Underweight ICD Codes: R63.6 - Underweight SNOMED: 412361347 (8) Hypokalemia ICD Codes: E87.6 - Hypokalemia SNOMED: 17058076 (9) Folate deficiency ICD Codes: E53.8 - Deficiency of other specified B group vitamins SNOMED: 713755996 (10) Anemia of chronic disease ICD Codes: D63.8 - Anemia in other chronic diseases classified elsewhere SNOMED: 092428182 Status: stable Assessment/Plan Renal consulted Cont IVFs Trend BMP closely Cont moscoso for strict I/O's Strict I/O's, daily weights F/u renal U/S--> possible blood clot vs mass in bladder, mild b/l hydroureteronephrosis Urology consulted given hematuria and renal U/S findings Will likely need CT a/p and cystoscopy at some point per urology but can be done electively. Given plan for transfer to another hospital, will hold off for now Cardiology consulted F/u TTE--> EF 70% Endocrinology consulted given elevated TSH Cont synthroid 50mcg daily Cont folate 1mg daily as folate level low F/u Vit D level--low, Vit D supplementation started EPO per renal [employer] consulted Marinol 2.5mg TID Swallow eval--video swallow ordered SW consult for home safety eval and to locate family/friends if available. No family/friends found Psych consulted given agitation. Pt has no capacity to leave AMA at this time. Seroquel started Cont 1:1 sitter Per CM, pt's insurance requesting to transfer to another hospital. Pt is medically stable for transfer DVT ppx: SCDs FULL CODE per policy D/w pt, RN, SW/CM, renal, cardiology, endo regarding mgmt and dispo Subjective Date patient seen: Sep 03, 2017 Time patient seen: 10:00 ROS Limited/Unobtainable: No Allergies: Coded Allergies: No Known Allergies (Verified , 07/05/11) Subjective No acute o/n events SCr down to 6.0 UOP 1200mL Awaiting transfer to another hospital per insurance request Less agitated. Sitter at bedside. Takes in PO when being fed. Confused ROS limited / AMS, agitation Objective Last 24 Hour Vital Signs Date Time Temp Pulse Resp B/P (MAP) Pulse Ox O2 Delivery O2 Flow Rate FiO2 09/03/17 20:36 97.9 60 18 118/73 100 Room Air 09/03/17 16:00 97.4 60 18 109/65 92 Room Air 09/03/17 12:00 18 112/78 92 Room Air 09/03/17 08:41 60 18 118/75 100 Room Air 09/03/17 04:00 Room Air 09/03/17 04:00 97.8 58 18 118/75 100 09/03/17 00:00 Room Air 09/03/17 00:00 97.5 75 18 117/75 97 Intake and Output 09/02/17 09/03/17 19:00 07:00 Intake Total 1275 ml 1000 ml Output Total 600 ml 600 ml Balance 675 ml 400 ml Intake Oral 75 ml IV Total 1200 ml 1000 ml Output Urine Total 600 ml 600 ml Laboratory Tests 09/03/17 05:15: Sodium Level 141, Potassium Level 3.3L, Chloride Level 107, Carbon Dioxide Level 18L, Anion Gap 16H, Blood Urea Nitrogen 103H, Creatinine 6.0H, Estimat Glomerular Filtration Rate , Glucose Level 84, Calcium Level 7.7L, Phosphorus Level 3.7, Magnesium Level 1.3L, Total Bilirubin 0.2, Direct Bilirubin < 0.1, Aspartate Amino Transf (AST/SGOT) 18, Alanine Aminotransferase (ALT/SGPT) 14, Alkaline Phosphatase 54, C-Reactive Protein, Quantitative 14.8H, Total Protein 6.2L, Albumin 2.3L Height (Feet): 5 Height (Inches): 8.00 Weight (Pounds): 100 Objective General: alert, cooperative, no distress, appears stated age, cachectic Head: normocephalic, without obvious abnormality, atraumatic Eyes: conjunctivae/corneas clear. PERRL, EOM's intact Throat: lips, mucosa, and tongue normal. MMM Neck: supple, symmetrical, trachea midline, and no JVD Lungs: clear to auscultation bilaterally Heart: regular rate and rhythm, S1, S2 normal, no murmur, click, rub or gallop Abdomen: soft, non-tender, non-distended, bowel sounds normal Extremities: extremities normal, atraumatic, no cyanosis or edema Pulses: 2+ and symmetric Skin: skin color, texture, turgor normal; no rashes or lesions Neurologic: grossly normal, no focal deficits Tabatha Starr M.D. Sep 03, 2017 22:43
--- NOTE | 2017-09-03 22:45 | Progress Note ---
DATE: 09/03/2017 SUBJECTIVE: The patient continues to be presenting with confusion and decreased appetite. Not engaged in the evaluation. At times, agitated. Anxiety has decreased. MENTAL STATUS EXAMINATION: The patient is alert and oriented to self. Mood is neutral to anxious. Affect is flat, congruent with mood. Thought process is concrete. Thought content, no suicidal or homicidal ideations. ASSESSMENT: 1. Failure to thrive. 2. Encephalopathy. PLAN: 1. We will continue the Zyprexa. 2. Continue to follow and readjust the medications. Ana Ingram M.D. DR: DANA JOB#: [id number] CC:
[2017-09-04 02:17] VITALS: BP 111/62
[2017-09-04] MEDS: D5 1/2NS 1,000 ML IV SCH ×2 (04:00→16:14)
[2017-09-04 04:06] VITALS: BP 120/77
[2017-09-04 06:55] LABS: HEMATOCRIT 33.8 % (42.0-52.0); MEAN CORPUSCULAR VOLUME 97 FL (80-99); PLATELET COUNT 65 K/UL (150-450); RED BLOOD COUNT 3.49 M/UL (4.70-6.10); RED CELL DISTRIBUTION WIDTH 16.3 % (11.6-14.8); WHITE BLOOD COUNT 2.7 K/UL (4.8-10.8)
[2017-09-04 07:39] LABS: ALANINE AMINOTRANSFERASE 20 U/L (12-78); ALBUMIN 2.1 G/DL (3.4-5.0); ALBUMIN/GLOBULIN RATIO 0.5 (1.0-2.7); ALKALINE PHOSPHATASE 59 U/L (46-116); ANION GAP 12 mmol/L (5-15); ASPARTATE AMINO TRANSFERASE 35 U/L (15-37); BILIRUBIN,TOTAL 0.3 MG/DL (0.2-1.0); BLOOD UREA NITROGEN 98 mg/dL (7-18); CALCIUM 7.7 MG/DL (8.5-10.1); CARBON DIOXIDE 17 MMOL/L (21-32); CHLORIDE 107 MMOL/L (98-107); CREATININE 5.4 MG/DL (0.55-1.30); PHOSPHORUS 3.3 MG/DL (2.5-4.9); SODIUM 136 MMOL/L (136-145)
[2017-09-04 07:44] LABS: POTASSIUM 7.4 MMOL/L (3.5-5.1)
[2017-09-04 07:58] VITALS: BP 116/76
[2017-09-04] MEDS: Dronabinol 2.5mg Cap ORAL SCH ×4 (08:53→18:13)
[2017-09-04 09:01] LABS: ANION GAP 14 mmol/L (5-15); BLOOD UREA NITROGEN 97 mg/dL (7-18); CALCIUM 7.6 MG/DL (8.5-10.1); CARBON DIOXIDE 19 MMOL/L (21-32); CHLORIDE 108 MMOL/L (98-107); CREATININE 5.5 MG/DL (0.55-1.30); POTASSIUM 3.7 MMOL/L (3.5-5.1); SODIUM 140 MMOL/L (136-145)
--- NOTE | 2017-09-04 10:13 | Cardiac Electrophysiology PN ---
Assessment/Plan Assessment/Plan 1. Syncope, Likely due to dehydration and volume depletion. Echo NL EF 70% 2. Troponin leak, due to renal failure.No chest pain 3. FTT 4. Renal failure. Improved to BUN 97 Cr 5.[address] Segovia.On iv fluid 5. Dementia DW RN Subjective Subjective No chest pain or SOB.No events. Sitter at bedside. Objective Last 24 Hour Vital Signs Date Time Temp Pulse Resp B/P (MAP) Pulse Ox O2 Delivery O2 Flow Rate FiO2 09/04/17 07:58 97.1 71 19 116/76 94 09/04/17 04:06 97.8 61 18 120/77 100 Room Air 09/04/17 02:17 97.4 64 20 111/62 100 Room Air 09/03/17 20:36 97.9 60 18 118/73 100 Room Air 09/03/17 16:00 97.4 60 18 109/65 92 Room Air 09/03/17 12:00 18 112/78 92 Room Air Intake and Output 09/03/17 09/04/17 19:00 07:00 Intake Total 600 ml 1200 ml Output Total 700 ml Balance -100 ml 1200 ml IV Total 600 ml 1200 ml Output Urine Total 700 ml Laboratory Tests Test 09/04/17 06:20 09/04/17 08:30 White Blood Count 2.7 K/UL (4.8-10.8) L Red Blood Count 3.49 M/UL (4.70-6.10) L Hemoglobin 11.0 G/DL (14.2-18.0) L Hematocrit 33.8 % (42.0-52.0) L Mean Corpuscular Volume 97 FL (80-99) Mean Corpuscular Hemoglobin 31.7 PG (27.0-31.0) H Mean Corpuscular Hemoglobin Concent 32.6 G/DL (32.0-36.0) Red Cell Distribution Width 16.3 % (11.6-14.8) H Platelet Count 65 K/UL (150-450) L Mean Platelet Volume 9.3 FL (6.5-10.1) Neutrophils (%) (Auto) % (45.0-75.0) Lymphocytes (%) (Auto) % (20.0-45.0) Monocytes (%) (Auto) % (1.0-10.0) Eosinophils (%) (Auto) % (0.0-3.0) Basophils (%) (Auto) % (0.0-2.0) Differential Total Cells Counted 100 Neutrophils % (Manual) 83 % (45-75) H Lymphocytes % (Manual) 6 % (20-45) L Monocytes % (Manual) 2 % (1-10) Eosinophils % (Manual) 1 % (0-3) Basophils % (Manual) 0 % (0-2) Band Neutrophils 8 % (0-8) Platelet Estimate Decreased L Platelet Morphology Normal Anisocytosis 1+ Sodium Level 136 MMOL/L (136-145) 140 MMOL/L (136-145) Potassium Level 7.4 MMOL/L (3.5-5.1) #*H 3.7 MMOL/L (3.5-5.1) Chloride Level 107 MMOL/L (98-107) 108 MMOL/L (98-107) H Carbon Dioxide Level 17 MMOL/L (21-32) L 19 MMOL/L (21-32) L Anion Gap 12 mmol/L (5-15) 14 mmol/L (5-15) Blood Urea Nitrogen 98 mg/dL (7-18) H 97 mg/dL (7-18) H Creatinine 5.4 MG/DL (0.55-1.30) H 5.5 MG/DL (0.55-1.30) H Estimat Glomerular Filtration Rate mL/min (>60) mL/min (>60) Glucose Level 83 MG/DL (74-106) 85 MG/DL (74-106) Uric Acid 9.8 MG/DL (2.6-7.2) H Calcium Level 7.7 MG/DL (8.5-10.1) L 7.6 MG/DL (8.5-10.1) L Phosphorus Level 3.3 MG/DL (2.5-4.9) Magnesium Level 2.1 MG/DL (1.8-2.4) Total Bilirubin 0.3 MG/DL (0.2-1.0) Aspartate Amino Transf (AST/SGOT) 35 U/L (15-37) Alanine Aminotransferase (ALT/SGPT) 20 U/L (12-78) Alkaline Phosphatase 59 U/L (46-116) Pro-B-Type Natriuretic Peptide 40127 pg/mL (0-125) H Total Protein 6.4 G/DL (6.4-8.2) Albumin 2.1 G/DL (3.4-5.0) L Globulin 4.3 g/dL Albumin/Globulin Ratio 0.5 (1.0-2.7) L Prostate Specific Antigen 118.92 ng/mL (0.13-4.0) H Total Testosterone Pending Cortisol AM Sample Pending Objective HEENT: No JVD LUNGS: CLEAR CVS: RRR ABDOMEN: SOFT EXT: NO edema LATASHA TOLEDO Sep 04, 2017 10:13
--- NOTE | 2017-09-04 10:38 | Urology Progress Note ---
Assessment/Plan Assessment/Plan urinary retention BPH hx probable neurogenic bladder hematuria renal insufficiency, acute on chronic, slowly improving hydro pyuria proteinuria keep moscoso hand irrigated, no clots consider CT check serum PSA cysto later pt to be transferred to another [facility] pt's family requesting to go [facility] Subjective Allergies: Coded Allergies: No Known Allergies (Verified , 07/05/11) Subjective looks comfortable, awaiting placement Objective Last 24 Hour Vital Signs Date Time Temp Pulse Resp B/P (MAP) Pulse Ox O2 Delivery O2 Flow Rate FiO2 09/04/17 07:58 97.1 71 19 116/76 94 09/04/17 04:06 97.8 61 18 120/77 100 Room Air 09/04/17 02:17 97.4 64 20 111/62 100 Room Air 09/03/17 20:36 97.9 60 18 118/73 100 Room Air 09/03/17 16:00 97.4 60 18 109/65 92 Room Air 09/03/17 12:00 18 112/78 92 Room Air Intake and Output 09/03/17 09/04/17 19:00 07:00 Intake Total 600 ml 1200 ml Output Total 700 ml Balance -100 ml 1200 ml IV Total 600 ml 1200 ml Output Urine Total 700 ml Microbiology Date/Time Source Procedure Growth Status 08/31/17 06:00 Urine,Clean Catch Urine Culture - Final NO GROWTH AFTER 48 HOURS Complete Current Medications Medications (Trade) Dose Ordered Sig/Saud Route PRN Reason Start Time Stop Time Status Last Admin Dose Admin Dextrose/Sodium Chloride 1,000 ml @ 100 mls/hr Q10H IV 09/01/17 17:15 09/29/17 13:29 09/04/17 04:00 Dronabinol (Marinol) 2.5 mg TID ORAL 09/01/17 18:00 09/29/17 17:59 09/04/17 08:53 Epoetin Gume (Procrit (for non ESRD use)) 10,000 units MON-WED-FRI SUBQ 09/03/17 21:00 10/03/17 20:59 09/03/17 20:36 Ergocalciferol (Drisdol) 50,000 intlu QWEEK ORAL 09/03/17 18:00 10/03/17 17:59 Folic Acid (Folate) 5 mg DAILY ORAL 09/03/17 11:00 10/03/17 10:59 09/04/17 08:54 Levothyroxine Sodium (Synthroid) 50 mcg ACBREAKFAST ORAL 09/04/17 06:30 10/04/17 06:29 09/04/17 05:41 Lorazepam (Ativan 2mg/ml 1ml) 0.5 mg Q6H PRN IM agitation/restlessness 09/01/17 17:45 09/07/17 11:44 09/02/17 00:39 Olanzapine (ZyPREXA) 2.5 mg EVERY 4 HOURS PRN ORAL agitation 09/01/17 17:20 09/30/17 17:19 Olanzapine (ZyPREXA) 5 mg BEDTIME ORAL 09/01/17 21:00 09/30/17 20:59 09/03/17 20:36 Pantoprazole (Protonix) 40 mg DAILY ORAL 09/02/17 09:00 09/29/17 13:59 09/04/17 08:53 Potassium Chloride (K-Dur) 20 meq TWICE A DAY ORAL 09/03/17 11:00 09/04/17 10:59 09/04/17 10:19 Laboratory Tests 09/04/17 06:20: White Blood Count 2.7L, Red Blood Count 3.49L, Hemoglobin 11.0L, Hematocrit 33.8L, Mean Corpuscular Volume 97, Mean Corpuscular Hemoglobin 31.7H, Mean Corpuscular Hemoglobin Concent 32.6, Red Cell Distribution Width 16.3H, Platelet Count 65L, Mean Platelet Volume 9.3, Neutrophils (%) (Auto) , Lymphocytes (%) (Auto) , Monocytes (%) (Auto) , Eosinophils (%) (Auto) , Basophils (%) (Auto) , Differential Total Cells Counted 100, Neutrophils % ( Manual) 83H, Lymphocytes % (Manual) 6L, Monocytes % (Manual) 2, Eosinophils % ( Manual) 1, Basophils % (Manual) 0, Band Neutrophils 8, Platelet Estimate DecreasedL, Platelet Morphology Normal, Anisocytosis 1+, Sodium Level 136, Potassium Level 7.4#*H, Chloride Level 107, Carbon Dioxide Level 17L, Anion Gap 12, Blood Urea Nitrogen 98H, Creatinine 5.4H, Estimat Glomerular Filtration Rate , Glucose Level 83, Uric Acid 9.8H, Calcium Level 7.7L, Phosphorus Level 3.3, Magnesium Level 2.1, Total Bilirubin 0.3, Aspartate Amino Transf (AST/SGOT ) 35, Alanine Aminotransferase (ALT/SGPT) 20, Alkaline Phosphatase 59, Pro-B- Type Natriuretic Peptide 84999H, Total Protein 6.4, Albumin 2.1L, Globulin 4.3, Albumin/Globulin Ratio 0.5L, Prostate Specific Antigen 118.92H, Total Testosterone [Pending], Cortisol AM Sample [Pending] 09/04/17 08:30: Sodium Level 140, Potassium Level 3.7, Chloride Level 108H, Carbon Dioxide Level 19L, Anion Gap 14, Blood Urea Nitrogen 97H, Creatinine 5.5H, Estimat Glomerular Filtration Rate , Glucose Level 85, Calcium Level 7.6L Height (Feet): 5 Height (Inches): 8.00 Weight (Pounds): 100 Objective exam stable, urine is clearing MANISH MORAN Sep 04, 2017 10:38
--- NOTE | 2017-09-04 11:38 | Nephrology Progress Note ---
Assessment/Plan Problem List: (1) ARF (acute renal failure) (2) CKD (chronic kidney disease) (3) Anemia of chronic disease (4) Severe protein-calorie malnutrition (Woodward: less than 60% of standard weight ) (5) Failure to thrive (6) Hypothyroid (7) PSA elevation Assessment acute renal failure- high K- Cr lower, Urinary out let obstruction- 450 cc Urine after moscoso Underlying CKD Anemia Malnutrition, FTT HypoThyroid Plan Add FLOMAX folate- Vit D- K supplement NEEDED Moscoso- IV fluid- Monitor renal parameters avoid nephro toxics improve nutrition check PSA : ELEVATED Testosterone PENDING 24 h urine collection NOMI Kidney: Moscoso catheter noted in the bladder. Heterogeneous structure within the bladder possibly representing blood clot given history of hematuria. Neoplasm or additional etiologies not excluded. Mild bilateral hydroureteronephrosis, possibly related to obstruction from described bladder lesion. Subjective ROS Limited/Unobtainable: No Constitutional: Reports: malaise Objective Objective Last 24 Hour Vital Signs Date Time Temp Pulse Resp B/P (MAP) Pulse Ox O2 Delivery O2 Flow Rate FiO2 09/04/17 07:58 97.1 71 19 116/76 94 09/04/17 04:06 97.8 61 18 120/77 100 Room Air 09/04/17 02:17 97.4 64 20 111/62 100 Room Air 09/03/17 20:36 97.9 60 18 118/73 100 Room Air 09/03/17 16:00 97.4 60 18 109/65 92 Room Air 09/03/17 12:00 18 112/78 92 Room Air Intake and Output 09/03/17 09/04/17 19:00 07:00 Intake Total 600 ml 1200 ml Output Total 700 ml Balance -100 ml 1200 ml IV Total 600 ml 1200 ml Output Urine Total 700 ml Laboratory Tests 09/04/17 06:20: White Blood Count 2.7L, Red Blood Count 3.49L, Hemoglobin 11.0L, Hematocrit 33.8L, Mean Corpuscular Volume 97, Mean Corpuscular Hemoglobin 31.7H, Mean Corpuscular Hemoglobin Concent 32.6, Red Cell Distribution Width 16.3H, Platelet Count 65L, Mean Platelet Volume 9.3, Neutrophils (%) (Auto) , Lymphocytes (%) (Auto) , Monocytes (%) (Auto) , Eosinophils (%) (Auto) , Basophils (%) (Auto) , Differential Total Cells Counted 100, Neutrophils % ( Manual) 83H, Lymphocytes % (Manual) 6L, Monocytes % (Manual) 2, Eosinophils % ( Manual) 1, Basophils % (Manual) 0, Band Neutrophils 8, Platelet Estimate DecreasedL, Platelet Morphology Normal, Anisocytosis 1+, Sodium Level 136, Potassium Level 7.4#*H, Chloride Level 107, Carbon Dioxide Level 17L, Anion Gap 12, Blood Urea Nitrogen 98H, Creatinine 5.4H, Estimat Glomerular Filtration Rate , Glucose Level 83, Uric Acid 9.8H, Calcium Level 7.7L, Phosphorus Level 3.3, Magnesium Level 2.1, Total Bilirubin 0.3, Aspartate Amino Transf (AST/SGOT ) 35, Alanine Aminotransferase (ALT/SGPT) 20, Alkaline Phosphatase 59, Pro-B- Type Natriuretic Peptide 26488F, Total Protein 6.4, Albumin 2.1L, Globulin 4.3, Albumin/Globulin Ratio 0.5L, Prostate Specific Antigen 118.92H, Total Testosterone [Pending], Cortisol AM Sample [Pending] 09/04/17 08:30: Sodium Level 140, Potassium Level 3.7, Chloride Level 108H, Carbon Dioxide Level 19L, Anion Gap 14, Blood Urea Nitrogen 97H, Creatinine 5.5H, Estimat Glomerular Filtration Rate , Glucose Level 85, Calcium Level 7.6L Height (Feet): 5 Height (Inches): 8.00 Weight (Pounds): 100 General Appearance: no apparent distress Cardiovascular: normal rate Respiratory/Chest: decreased breath sounds Abdomen: soft FAHEEM PRINGLE Sep 04, 2017 11:38
--- NOTE | 2017-09-04 11:39 | Diagnostic Imaging Report ---
APPROVED REPORT CPT Code: 65166 Present Symptoms Comments: R/O DVT BILATERAL: Imaging reveals a patent deep venous system bilaterally. There is no evidence of thrombus within the femoral, popliteal or tibial segments. The greater saphenous veins are also within normal limits. Doppler indicates normal spontaneous flow within these segments.
[2017-09-04 11:54] VITALS: BP 104/45
[2017-09-04] MEDS ORDERED: Vitamin D 50,000 units cap ORAL SCH (12:00)
[2017-09-04] MEDS: Tamsulosin 0.4mg cap ORAL SCH ×3 (14:37→18:13)
--- NOTE | 2017-09-04 14:44 | General Progress Note ---
Assessment/Plan Problem List: (1) Acute renal failure Assessment & Plan: likely pre-renal ICD Codes: N17.9 - Acute kidney failure, unspecified SNOMED: 60903652 (2) Acute encephalopathy ICD Codes: G93.40 - Encephalopathy, unspecified SNOMED: 2780029 (3) Hypothyroidism ICD Codes: E03.9 - Hypothyroidism, unspecified SNOMED: 82569024 (4) Failure to thrive SNOMED: 97016552 Qualifiers: Qualified Codes: R62.7 - Adult failure to thrive (5) Severe protein-calorie malnutrition (Woodward: less than 60% of standard weight ) ICD Codes: E43 - Unspecified severe protein-calorie malnutrition SNOMED: 700847321 (6) Hyperkalemia ICD Codes: E87.5 - Hyperkalemia SNOMED: 73095353 (7) Underweight ICD Codes: R63.6 - Underweight SNOMED: 521756956 (8) Hypokalemia ICD Codes: E87.6 - Hypokalemia SNOMED: 17467808 (9) Folate deficiency ICD Codes: E53.8 - Deficiency of other specified B group vitamins SNOMED: 746361202 (10) Anemia of chronic disease ICD Codes: D63.8 - Anemia in other chronic diseases classified elsewhere SNOMED: 648806404 Status: stable Assessment/Plan Renal consulted Cont IVFs Trend BMP closely Cont moscoso for strict I/O's Strict I/O's, daily weights F/u renal U/S--> possible blood clot vs mass in bladder, mild b/l hydroureteronephrosis Urology consulted given hematuria and renal U/S findings Will likely need CT a/p and cystoscopy at some point per urology but can be done electively. 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 No family/friends found Psych consulted given agitation. Pt has no capacity to leave AMA at this time. Seroquel started Cont 1:1 sitter Per CM, pt's insurance requesting to transfer to another hospital. Pt is medically stable for transfer DVT ppx: SCDs FULL CODE per policy D/w pt, RN, SW/CM, renal, cardiology, endo regarding mgmt and dispo Subjective Date patient seen: Sep 04, 2017 Time patient seen: 14:44 ROS Limited/Unobtainable: No Allergies: Coded Allergies: No Known Allergies (Verified , 07/05/11) Subjective No acute o/n events SCr down to 6.0 UOP 1200mL Awaiting transfer to another hospital per insurance request Less agitated. Sitter at bedside. Takes in minimal PO when being fed. Confused ROS limited 2/2 AMS, agitation Objective Last 24 Hour Vital Signs Date Time Temp Pulse Resp B/P (MAP) Pulse Ox O2 Delivery O2 Flow Rate FiO2 09/04/17 11:54 97.1 71 20 104/45 100 09/04/17 07:58 97.1 71 19 116/76 94 09/04/17 04:06 97.8 61 18 120/77 100 Room Air 09/04/17 02:17 97.4 64 20 111/62 100 Room Air 09/03/17 20:36 97.9 60 18 118/73 100 Room Air 09/03/17 16:00 97.4 60 18 109/65 92 Room Air Intake and Output 09/03/17 09/04/17 19:00 07:00 Intake Total 600 ml 1300 ml Output Total 700 ml Balance -100 ml 1300 ml IV Total 600 ml 1300 ml Output Urine Total 700 ml Laboratory Tests 09/04/17 06:20: White Blood Count 2.7L, Red Blood Count 3.49L, Hemoglobin 11.0L, Hematocrit 33.8L, Mean Corpuscular Volume 97, Mean Corpuscular Hemoglobin 31.7H, Mean Corpuscular Hemoglobin Concent 32.6, Red Cell Distribution Width 16.3H, Platelet Count 65L, Mean Platelet Volume 9.3, Neutrophils (%) (Auto) , Lymphocytes (%) (Auto) , Monocytes (%) (Auto) , Eosinophils (%) (Auto) , Basophils (%) (Auto) , Differential Total Cells Counted 100, Neutrophils % ( Manual) 83H, Lymphocytes % (Manual) 6L, Monocytes % (Manual) 2, Eosinophils % ( Manual) 1, Basophils % (Manual) 0, Band Neutrophils 8, Platelet Estimate DecreasedL, Platelet Morphology Normal, Anisocytosis 1+, Sodium Level 136, Potassium Level 7.4#*H, Chloride Level 107, Carbon Dioxide Level 17L, Anion Gap 12, Blood Urea Nitrogen 98H, Creatinine 5.4H, Estimat Glomerular Filtration Rate , Glucose Level 83, Uric Acid 9.8H, Calcium Level 7.7L, Phosphorus Level 3.3, Magnesium Level 2.1, Total Bilirubin 0.3, Aspartate Amino Transf (AST/SGOT ) 35, Alanine Aminotransferase (ALT/SGPT) 20, Alkaline Phosphatase 59, Pro-B- Type Natriuretic Peptide 09539O, Total Protein 6.4, Albumin 2.1L, Globulin 4.3, Albumin/Globulin Ratio 0.5L, Prostate Specific Antigen 118.92H, Total Testosterone [Pending], Cortisol AM Sample [Pending] 09/04/17 08:30: Sodium Level 140, Potassium Level 3.7, Chloride Level 108H, Carbon Dioxide Level 19L, Anion Gap 14, Blood Urea Nitrogen 97H, Creatinine 5.5H, Estimat Glomerular Filtration Rate , Glucose Level 85, Calcium Level 7.6L Height (Feet): 5 Height (Inches): 8.00 Weight (Pounds): 100 Objective General: alert, cooperative, no distress, appears stated age, cachectic Head: normocephalic, without obvious abnormality, atraumatic Eyes: conjunctivae/corneas clear. PERRL, EOM's intact Throat: lips, mucosa, and tongue normal. MMM Neck: supple, symmetrical, trachea midline, and no JVD Lungs: clear to auscultation bilaterally Heart: regular rate and rhythm, S1, S2 normal, no murmur, click, rub or gallop Abdomen: soft, non-tender, non-distended, bowel sounds normal Extremities: extremities normal, atraumatic, no cyanosis or edema Pulses: 2+ and symmetric Skin: skin color, texture, turgor normal; no rashes or lesions Neurologic: grossly normal, no focal deficits Tabatha Starr M.D. Sep 04, 2017 14:44
[2017-09-04 15:53] VITALS: BP 101/64
[2017-09-04 19:56] VITALS: BP 103/71
[2017-09-05] VITALS (17 sets, daily range): BP systolic 32–109; BP diastolic 20–77
[2017-09-05] MEDS: D5 1/2NS 1,000 ML IV SCH ×2 (01:09→10:38)
--- NOTE | 2017-09-05 06:00 | Progress Note ---
DATE: 09/04/2017 SUBJECTIVE: The patient is . He still has episodes of agitation. He is agitated. The patient is on one-to-one. MENTAL STATUS EXAMINATION: The patient is disoriented. Uncooperative at times. Agitated. Mood is neutral. Affect is flat. Thought process, there is a paucity of thought content. Thought content, no suicidal or homicidal ideation. ASSESSMENT: 1. Agitation. 2. Failure to thrive. PLAN: We will continue the current medications. Ana Ingram M.D. DR: RADHA JOB#: [id number] CC:
[2017-09-05] MEDS: Tamsulosin 0.4mg cap ORAL SCH ×3 (08:18→18:31)
[2017-09-05] MEDS: Dronabinol 2.5mg Cap ORAL SCH ×3 (08:20→18:32)
--- NOTE | 2017-09-05 08:40 | Urology Progress Note ---
Assessment/Plan Assessment/Plan urinary retention BPH hx probable neurogenic bladder hematuria renal insufficiency, acute on chronic, slowly improving hydro pyuria proteinuria keep moscoso hand irrigate PRN consider CT, check serum PSA cysto later pt to be transferred to another [facility] pt's family requesting to go [facility] Subjective Allergies: Coded Allergies: No Known Allergies (Verified , 07/05/11) Subjective looks comfortable, awaiting placement Objective Last 24 Hour Vital Signs Date Time Temp Pulse Resp B/P (MAP) Pulse Ox O2 Delivery O2 Flow Rate FiO2 09/05/17 04:00 96.6 52 20 109/56 99 Room Air 09/05/17 00:00 96.9 53 18 106/63 97 Nasal Cannula 09/04/17 19:56 96.0 56 20 103/71 99 Room Air 09/04/17 15:53 97.0 52 20 101/64 99 09/04/17 11:54 97.1 71 20 104/45 100 Intake and Output 09/04/17 09/05/17 19:00 07:00 Intake Total 1120 ml 1100 ml Output Total 350 ml 200 ml Balance 770 ml 900 ml Intake Oral 120 ml IV Total 1000 ml 1100 ml Output Urine Total 350 ml 200 ml Microbiology Date/Time Source Procedure Growth Status 08/31/17 06:00 Urine,Clean Catch Urine Culture - Final NO GROWTH AFTER 48 HOURS Complete Current Medications Medications (Trade) Dose Ordered Sig/Saud Route PRN Reason Start Time Stop Time Status Last Admin Dose Admin Dextrose/Sodium Chloride 1,000 ml @ 100 mls/hr Q10H IV 09/01/17 17:15 09/29/17 13:29 09/05/17 01:09 Dronabinol (Marinol) 5 mg TID ORAL 09/04/17 13:00 10/04/17 12:59 09/05/17 08:20 Ergocalciferol (Drisdol) 50,000 intlu QWEEK ORAL 09/04/17 12:00 10/04/17 11:59 09/04/17 14:36 Folic Acid (Folate) 5 mg DAILY ORAL 09/03/17 11:00 10/03/17 10:59 09/05/17 08:19 Levothyroxine Sodium (Synthroid) 50 mcg ACBREAKFAST ORAL 09/04/17 06:30 10/04/17 06:29 09/05/17 05:30 Lorazepam (Ativan 2mg/ml 1ml) 0.5 mg Q6H PRN IM agitation/restlessness 09/01/17 17:45 09/07/17 11:44 09/02/17 00:39 Olanzapine (ZyPREXA) 2.5 mg EVERY 4 HOURS PRN ORAL agitation 09/01/17 17:20 09/30/17 17:19 Olanzapine (ZyPREXA) 5 mg BEDTIME ORAL 09/01/17 21:00 09/30/17 20:59 09/04/17 20:45 Pantoprazole (Protonix) 40 mg DAILY ORAL 09/02/17 09:00 09/29/17 13:59 09/05/17 08:18 Tamsulosin HCl (Flomax) 0.4 mg BID ORAL 09/04/17 12:00 10/04/17 11:59 09/05/17 08:18 Height (Feet): 5 Height (Inches): 8.00 Weight (Pounds): 100 Objective exam stable, urine is clearing MANISH MORAN Sep 05, 2017 08:40
--- NOTE | 2017-09-05 10:33 | Cardiac Electrophysiology PN ---
Assessment/Plan Assessment/Plan 1. Syncope, Likely due to dehydration and volume depletion. Echo NL EF 70% 2. Troponin leak, due to renal failure.No chest pain 3. FTT, May need PEG as not eating much 4. Renal failure. Improved to BUN 97 Cr 5.5 on 09/04/17. Follow up Dr Segovia. 5. Dementia DW RN Subjective Subjective No chest pain or SOB.No events.Not eating much.RN at bedside. Objective Last 24 Hour Vital Signs Date Time Temp Pulse Resp B/P (MAP) Pulse Ox O2 Delivery O2 Flow Rate FiO2 09/05/17 09:21 96.7 55 18 100/50 99 Room Air 09/05/17 08:00 96.7 59 18 100/50 99 Room Air 09/05/17 04:00 96.6 52 20 109/56 99 Room Air 09/05/17 00:00 96.9 53 18 106/63 97 Nasal Cannula 09/04/17 19:56 96.0 56 20 103/71 99 Room Air 09/04/17 15:53 97.0 52 20 101/64 99 09/04/17 11:54 97.1 71 20 104/45 100 Intake and Output 09/04/17 09/05/17 19:00 07:00 Intake Total 1120 ml 1200 ml Output Total 350 ml 200 ml Balance 770 ml 1000 ml Intake Oral 120 ml IV Total 1000 ml 1200 ml Output Urine Total 350 ml 200 ml Objective HEENT: No JVD LUNGS: CLEAR CVS: RRR ABDOMEN: SOFT EXT: NO edema LATASHA TOLEDO Sep 05, 2017 10:33
[2017-09-05 11:18] LABS: HEMATOCRIT 30.3 % (42.0-52.0); MEAN CORPUSCULAR VOLUME 96 FL (80-99); PLATELET COUNT 32 K/UL (150-450); RED BLOOD COUNT 3.15 M/UL (4.70-6.10); WHITE BLOOD COUNT 2.6 K/UL (4.8-10.8)
[2017-09-05 11:37] LABS: ALANINE AMINOTRANSFERASE 17 U/L (12-78); ALBUMIN 1.9 G/DL (3.4-5.0); ALBUMIN/GLOBULIN RATIO 0.5 (1.0-2.7); ALKALINE PHOSPHATASE 51 U/L (46-116); ANION GAP 15 mmol/L (5-15); ASPARTATE AMINO TRANSFERASE 25 U/L (15-37); BILIRUBIN,TOTAL 0.2 MG/DL (0.2-1.0); BLOOD UREA NITROGEN 91 mg/dL (7-18); CALCIUM 7.3 MG/DL (8.5-10.1); CARBON DIOXIDE 16 MMOL/L (21-32); CHLORIDE 108 MMOL/L (98-107); CREATININE 5.1 MG/DL (0.55-1.30); PHOSPHORUS 2.8 MG/DL (2.5-4.9); POTASSIUM 3.5 MMOL/L (3.5-5.1); SODIUM 139 MMOL/L (136-145)
--- NOTE | 2017-09-05 13:56 | General Progress Note ---
Assessment/Plan Problem List: (1) Acute renal failure Assessment & Plan: likely pre-renal ICD Codes: N17.9 - Acute kidney failure, unspecified SNOMED: 65256574 (2) Acute encephalopathy ICD Codes: G93.40 - Encephalopathy, unspecified SNOMED: 1997991 (3) Hypothyroidism ICD Codes: E03.9 - Hypothyroidism, unspecified SNOMED: 07994665 (4) Failure to thrive SNOMED: 90194840 Qualifiers: Qualified Codes: R62.7 - Adult failure to thrive (5) Severe protein-calorie malnutrition (Woodward: less than 60% of standard weight ) ICD Codes: E43 - Unspecified severe protein-calorie malnutrition SNOMED: 139468219 (6) Hyperkalemia ICD Codes: E87.5 - Hyperkalemia SNOMED: 07215069 (7) Underweight ICD Codes: R63.6 - Underweight SNOMED: 747111303 (8) Hypokalemia ICD Codes: E87.6 - Hypokalemia SNOMED: 62322295 (9) Folate deficiency ICD Codes: E53.8 - Deficiency of other specified B group vitamins SNOMED: 396608476 (10) Anemia of chronic disease ICD Codes: D63.8 - Anemia in other chronic diseases classified elsewhere SNOMED: 298501356 Status: stable Assessment/Plan Renal consulted Cont IVFs Trend BMP closely Renal recommends trial of dialysis to assess if uremia in setting of renal failure is leading to AMS, failure to thrive. No family available to consent and pt has no capacity, therefore will proceed w/ temporary dialysis line and initiate dialysis per renal Cont moscoso for strict I/O's Strict I/O's, daily weights F/u renal U/S--> possible blood clot vs mass in bladder, mild b/l hydroureteronephrosis Urology consulted given hematuria and renal U/S findings Will likely need CT a/p and cystoscopy at some point per urology but can be done electively. Given plan for transfer to another hospital, will hold off for now PSA elevated --> check CT head/chest/abd/pelvis Cardiology consulted F/u TTE--> EF 70% Endocrinology consulted given elevated TSH Cont synthroid 50mcg daily Cont folate 1mg daily as folate level low F/u Vit D level--low, Vit D supplementation started EPO per renal Material Analyst consulted Marinol 2.5mg TID Swallow eval--video swallow ordered SW consult for home safety eval and to locate family/friends if available. No family/friends found Psych consulted given agitation. Pt has no capacity to leave AMA at this time. Seroquel started Cont 1:1 sitter Per CM, pt's insurance requesting to transfer to another hospital. Pt is medically stable for transfer DVT ppx: SCDs FULL CODE per policy D/w pt, RN, SW/CM, renal, cardiology, endo regarding mgmt and dispo Subjective Date patient seen: Sep 05, 2017 Time patient seen: 13:56 ROS Limited/Unobtainable: Yes Allergies: Coded Allergies: No Known Allergies (Verified , 07/05/11) Subjective No acute o/n events SCr down to 6.0 UOP 1200mL Awaiting transfer to another hospital per insurance request Less agitated. Sitter at bedside. Takes in minimal PO when being fed. Confused, non-verbal now. ROS limited 2/2 AMS Objective Last 24 Hour Vital Signs Date Time Temp Pulse Resp B/P (MAP) Pulse Ox O2 Delivery O2 Flow Rate FiO2 09/05/17 12:14 98.8 60 18 95/59 98 Room Air 09/05/17 09:21 96.7 55 18 100/50 99 Room Air 09/05/17 08:00 96.7 59 18 100/50 99 Room Air 09/05/17 04:00 96.6 52 20 109/56 99 Room Air 09/05/17 00:00 96.9 53 18 106/63 97 Nasal Cannula 09/04/17 19:56 96.0 56 20 103/71 99 Room Air 09/04/17 15:53 97.0 52 20 101/64 99 Intake and Output 09/04/17 09/05/17 19:00 07:00 Intake Total 1120 ml 1200 ml Output Total 350 ml 200 ml Balance 770 ml 1000 ml Intake Oral 120 ml IV Total 1000 ml 1200 ml Output Urine Total 350 ml 200 ml Laboratory Tests 09/05/17 10:25: White Blood Count 2.6L, Red Blood Count 3.15L, Hemoglobin 10.0L, Hematocrit 30.3L, Mean Corpuscular Volume 96, Mean Corpuscular Hemoglobin 31.6H, Mean Corpuscular Hemoglobin Concent 32.9, Red Cell Distribution Width 16.0H, Platelet Count 32#L, Mean Platelet Volume 11.4H, Neutrophils (%) (Auto) , Lymphocytes (%) (Auto) , Monocytes (%) (Auto) , Eosinophils (%) (Auto) , Basophils (%) (Auto) , Differential Total Cells Counted 100, Neutrophils % ( Manual) 82H, Lymphocytes % (Manual) 10L, Monocytes % (Manual) 2, Eosinophils % ( Manual) 0, Basophils % (Manual) 0, Band Neutrophils 6, Nucleated Red Blood Cells 1, Platelet Estimate DecreasedL, Platelet Morphology Normal, Sodium Level 139, Potassium Level 3.5, Chloride Level 108H, Carbon Dioxide Level 16L, Anion Gap 15, Blood Urea Nitrogen 91H, Creatinine 5.1H, Estimat Glomerular Filtration Rate , Glucose Level 96, Uric Acid 9.2H, Calcium Level 7.3L, Phosphorus Level 2.8, Magnesium Level 1.8, Total Bilirubin 0.2, Aspartate Amino Transf (AST/SGOT ) 25, Alanine Aminotransferase (ALT/SGPT) 17, Alkaline Phosphatase 51, Total Protein 5.4L, Albumin 1.9L, Globulin 3.5, Albumin/Globulin Ratio 0.5L Height (Feet): 5 Height (Inches): 8.00 Weight (Pounds): 100 Objective General: alert, cooperative, no distress, appears stated age, cachectic, non- verbal Head: normocephalic, without obvious abnormality, atraumatic Eyes: conjunctivae/corneas clear. PERRL, EOM's intact Throat: lips, mucosa, and tongue normal. MMM Neck: supple, symmetrical, trachea midline, and no JVD Lungs: clear to auscultation bilaterally Heart: regular rate and rhythm, S1, S2 normal, no murmur, click, rub or gallop Abdomen: soft, non-tender, non-distended, bowel sounds normal Extremities: extremities normal, atraumatic, no cyanosis or edema Pulses: 2+ and symmetric Skin: skin color, texture, turgor normal; no rashes or lesions Neurologic: grossly normal, no focal deficits Tabatha Starr M.D. Sep 05, 2017 13:56
[2017-09-05 14:50] LABS: CREATININE 5.3 MG/DL (0.55-1.30)
--- NOTE | 2017-09-05 14:52 | Nephrology Progress Note ---
Assessment/Plan Problem List: (1) ARF (acute renal failure) (2) CKD (chronic kidney disease) (3) Anemia of chronic disease (4) Severe protein-calorie malnutrition (Woodward: less than 60% of standard weight ) (5) Failure to thrive (6) Hypothyroid (7) PSA elevation Assessment acute renal failure- high K- Cr lower, has uremic symptoms Urinary out let obstruction- 450 cc Urine after moscoso Underlying CKD Anemia Malnutrition, FTT HypoThyroid Plan PATIENT NEED DIALYSIS FOR UREMIC SYMPTOMS CAN NOT CONSENT TO DIALYSIS CATHETER DR FISCHER AGREEABLE WITH ME THAT THIS IS URGENT Add FLOMAX folate- Vit D- K supplement NEEDED Moscoso- IV fluid- Monitor renal parameters avoid nephro toxics improve nutrition check PSA : ELEVATED Testosterone PENDING 24 h urine collection NOMI Kidney: Moscoso catheter noted in the bladder. Heterogeneous structure within the bladder possibly representing blood clot given history of hematuria. Neoplasm or additional etiologies not excluded. Mild bilateral hydroureteronephrosis, possibly related to obstruction from described bladder lesion. Subjective ROS Limited/Unobtainable: No Constitutional: Reports: malaise, weakness, other - poor po Objective Objective Last 24 Hour Vital Signs Date Time Temp Pulse Resp B/P (MAP) Pulse Ox O2 Delivery O2 Flow Rate FiO2 09/05/17 12:14 98.8 60 18 95/59 98 Room Air 09/05/17 09:21 96.7 55 18 100/50 99 Room Air 09/05/17 08:00 96.7 59 18 100/50 99 Room Air 09/05/17 04:00 96.6 52 20 109/56 99 Room Air 09/05/17 00:00 96.9 53 18 106/63 97 Nasal Cannula 09/04/17 19:56 96.0 56 20 103/71 99 Room Air 09/04/17 15:53 97.0 52 20 101/64 99 Intake and Output 09/04/17 09/05/17 19:00 07:00 Intake Total 1120 ml 1200 ml Output Total 350 ml 200 ml Balance 770 ml 1000 ml Intake Oral 120 ml IV Total 1000 ml 1200 ml Output Urine Total 350 ml 200 ml Laboratory Tests 09/05/17 10:25: White Blood Count 2.6L, Red Blood Count 3.15L, Hemoglobin 10.0L, Hematocrit 30.3L, Mean Corpuscular Volume 96, Mean Corpuscular Hemoglobin 31.6H, Mean Corpuscular Hemoglobin Concent 32.9, Red Cell Distribution Width 16.0H, Platelet Count 32#L, Mean Platelet Volume 11.4H, Neutrophils (%) (Auto) , Lymphocytes (%) (Auto) , Monocytes (%) (Auto) , Eosinophils (%) (Auto) , Basophils (%) (Auto) , Differential Total Cells Counted 100, Neutrophils % ( Manual) 82H, Lymphocytes % (Manual) 10L, Monocytes % (Manual) 2, Eosinophils % ( Manual) 0, Basophils % (Manual) 0, Band Neutrophils 6, Nucleated Red Blood Cells 1, Platelet Estimate DecreasedL, Platelet Morphology Normal, Sodium Level 139, Potassium Level 3.5, Chloride Level 108H, Carbon Dioxide Level 16L, Anion Gap 15, Blood Urea Nitrogen 91H, Creatinine 5.1H, Estimat Glomerular Filtration Rate , Glucose Level 96, Uric Acid 9.2H, Calcium Level 7.3L, Phosphorus Level 2.8, Magnesium Level 1.8, Total Bilirubin 0.2, Aspartate Amino Transf (AST/SGOT ) 25, Alanine Aminotransferase (ALT/SGPT) 17, Alkaline Phosphatase 51, Total Protein 5.4L, Albumin 1.9L, Globulin 3.5, Albumin/Globulin Ratio 0.5L Height (Feet): 5 Height (Inches): 8.00 Weight (Pounds): 100 General Appearance: no apparent distress, lethargic Cardiovascular: normal rate Respiratory/Chest: decreased breath sounds Abdomen: soft FAHEEM PRINGLE Sep 05, 2017 14:52
--- NOTE | 2017-09-05 16:02 | GI Initial Consult Note ---
Tere Stuart NAzra 09/05/17 1602: History of Present Illness General Date patient seen: Sep 05, 2017 Time patient seen: 15:53 Reason for Hospitalization: Generalized Weakness Referring physician: ADRIANA Reason for Consultation: PEG EVALUATION Present Illness HPI Paramedics were called by concerned neighbors. The patient's been losing weight and becoming weaker over the last month. He states his appetite has been good. He denies any pain in his body. She complains about generalized weakness. He denies any fevers, chills, shortness of breath, dysuria, rashes. The patient does not smoke. He hasn't seen a doctor for quite some time. He denies taking any medications at this time. Paramedics performed a 12-lead it was normal. Denies depression. GI consulted for PEG evaluation. Patient seen on floor, AMS on restraints with sitter by bedside. 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 Noted that family does not have the capacity to make his own decisions, nor does he have any family to consent. Reports that the patient has been refusing to eat, and spitting the food back out at staff. Labs show anemia and hypoalbuminemia. Home Meds Reported Medications No Known Medications* (NKM - No Known Medications*) ., 0 ., 0 Refills 08/29/17 Med list reviewed/reconciled: Yes Allergies: Coded Allergies: No Known Allergies (Verified , 07/05/11) Patient History Limited by: medical condition History Provided By: Medical Record PMH Narrative Past Medical History: see triage record Social History: Denies: smoking, alcohol use, drug use Social History Narrative home Reviewed Nursing Documentation: PMH: Agreed, PSxH: Agreed Review of Systems All Other Systems: limited Physical Exam Vital Signs Date Time Temp Pulse Resp B/P (MAP) Pulse Ox O2 Delivery O2 Flow Rate FiO2 09/01/17 08:00 72 09/01/17 08:00 98.8 19 148/98 96 Room Air Sp02 EP Interpretation: reviewed Labs Laboratory Tests Test 09/05/17 10:25 White Blood Count 2.6 K/UL (4.8-10.8) L Red Blood Count 3.15 M/UL (4.70-6.10) L Hemoglobin 10.0 G/DL (14.2-18.0) L Hematocrit 30.3 % (42.0-52.0) L Mean Corpuscular Volume 96 FL (80-99) Mean Corpuscular Hemoglobin 31.6 PG (27.0-31.0) H Mean Corpuscular Hemoglobin Concent 32.9 G/DL (32.0-36.0) Red Cell Distribution Width 16.0 % (11.6-14.8) H Platelet Count 32 K/UL (150-450) #L Mean Platelet Volume 11.4 FL (6.5-10.1) H Neutrophils (%) (Auto) % (45.0-75.0) Lymphocytes (%) (Auto) % (20.0-45.0) Monocytes (%) (Auto) % (1.0-10.0) Eosinophils (%) (Auto) % (0.0-3.0) Basophils (%) (Auto) % (0.0-2.0) Differential Total Cells Counted 100 Neutrophils % (Manual) 82 % (45-75) H Lymphocytes % (Manual) 10 % (20-45) L Monocytes % (Manual) 2 % (1-10) Eosinophils % (Manual) 0 % (0-3) Basophils % (Manual) 0 % (0-2) Band Neutrophils 6 % (0-8) Nucleated Red Blood Cells 1 /100 WBC Platelet Estimate Decreased L Platelet Morphology Normal Sodium Level 139 MMOL/L (136-145) Potassium Level 3.5 MMOL/L (3.5-5.1) Chloride Level 108 MMOL/L (98-107) H Carbon Dioxide Level 16 MMOL/L (21-32) L Anion Gap 15 mmol/L (5-15) Blood Urea Nitrogen 91 mg/dL (7-18) H Creatinine 5.1 MG/DL (0.55-1.30) H Estimat Glomerular Filtration Rate mL/min (>60) Glucose Level 96 MG/DL (74-106) Uric Acid 9.2 MG/DL (2.6-7.2) H Calcium Level 7.3 MG/DL (8.5-10.1) L Phosphorus Level 2.8 MG/DL (2.5-4.9) Magnesium Level 1.8 MG/DL (1.8-2.4) Total Bilirubin 0.2 MG/DL (0.2-1.0) Aspartate Amino Transf (AST/SGOT) 25 U/L (15-37) Alanine Aminotransferase (ALT/SGPT) 17 U/L (12-78) Alkaline Phosphatase 51 U/L (46-116) Total Protein 5.4 G/DL (6.4-8.2) L Albumin 1.9 G/DL (3.4-5.0) L Globulin 3.5 g/dL Albumin/Globulin Ratio 0.5 (1.0-2.7) L General Appearance: well appearing, no apparent distress, thin Head: normocephalic EENT: normal ENT inspection Neck: supple Respiratory: normal breath sounds, no respiratory distress Cardiovascular: normal rate Gastrointestinal: other - NGT Rectal: deferred Musculoskeletal: back normal Neurologic: other - AMS Skin: normal inspection, normal color, no rash Lymphatic: normal inspection, no adenopathy Current Medications Current Medications Medications (Trade) Dose Ordered Sig/Saud Route PRN Reason Start Time Stop Time Status Last Admin Dose Admin Dextrose/Sodium Chloride 1,000 ml @ 75 mls/hr [id number] IV 09/05/17 17:15 10/05/17 17:14 Dronabinol (Marinol) 5 mg TID ORAL 09/04/17 13:00 10/04/17 12:59 09/05/17 12:56 Ergocalciferol (Drisdol) 50,000 intlu QWEEK ORAL 09/04/17 12:00 10/04/17 11:59 09/04/17 14:36 Folic Acid (Folate) 5 mg DAILY ORAL 09/03/17 11:00 10/03/17 10:59 09/04/17 08:54 Levothyroxine Sodium (Synthroid) 50 mcg ACBREAKFAST ORAL 09/04/17 06:30 10/04/17 06:29 09/05/17 05:30 Lorazepam (Ativan 2mg/ml 1ml) 0.5 mg Q6H PRN IM agitation/restlessness 09/01/17 17:45 09/07/17 11:44 09/02/17 00:39 Olanzapine (ZyPREXA) 2.5 mg EVERY 4 HOURS PRN ORAL agitation 09/01/17 17:20 09/30/17 17:19 Olanzapine (ZyPREXA) 5 mg BEDTIME ORAL 2/3/18 21:00 09/30/17 20:59 09/04/17 20:45 Pantoprazole (Protonix) 40 mg DAILY ORAL 09/02/17 09:00 09/29/17 13:59 09/04/17 08:53 Tamsulosin HCl (Flomax) 0.4 mg BID ORAL 09/04/17 12:00 10/04/17 11:59 09/04/17 14:37 GI: Plan Problems: (1) Severe malnutrition (2) Lives alone without help available (3) Anemia of chronic disease (4) Acute encephalopathy (5) Folate deficiency (6) Underweight (7) Hypothyroidism (8) Failure to thrive (9) Protein calorie malnutrition (10) Severe protein-calorie malnutrition (Woodward: less than 60% of standard weight) Plan GI agrees with PEG, will require bioethics consent given patient unable to consent/pt has no family. NGTFs per RD after imaging placement confirmation of NGT. iron elevation prn transfusions ppi fu labs Discussed with Dr. Fernando. Thank you for this patient referral, we will follow. FLORENTINO FERNANDO 09/10/17 1512: History of Present Illness General Reason for Hospitalization: Generalized Weakness Present Illness Home Meds Reported Medications No Known Medications* (NKM - No Known Medications*) ., 0 ., 0 Refills 08/29/17 Allergies: Coded Allergies: No Known Allergies (Verified , 07/05/11) GI: Plan Plan The patient was seen and examined at bedside and all new and available data was reviewed in the patients chart. I agree with the above findings, impression and plan. (Patient seen earlier today. Signature stamp does not reflect patient encounter time.). - MD Sade Srivastava,[facility] Cal[place] N.PAureliano Sep 05, 2017 16:02 FLORENTINO FERNANDO Sep 10, 2017 15:12
--- NOTE | 2017-09-05 16:49 | Diagnostic Imaging Report ---
Indication: Post nasogastric tube placement Technique: Supine view of the upper abdomen Comparison: none Findings: There is a nasogastric tube in place. Tip projects at the level of the gastric body/fundus junction, proximal port just beyond the gastroesophageal junction. Dilated small bowel loops are noted. The right hemidiaphragm is elevated. Calcified. A limbus nodes are seen in the left pulmonary hilum Impression: Satisfactory nasogastric intubation Dilated small bowel loops, could indicate small bowel obstruction or ileus
[2017-09-05] MEDS ORDERED: D5 1/2NS 1,000 ML IV SCH ×2 (17:15→22:45)
--- NOTE | 2017-09-05 17:36 | Consultation ---
History of Present Illness General Date patient seen: Sep 05, 2017 Chief Complaint: Generalized Weakness Referring physician: ADRIANA Reason for Consultation: SBO vs ileus Present Illness HPI 77M with multiple medical comorbidities who was found by neighbors and taken to [facility] [place] for evaluation. Failure to thrive, TOMMIE, inability to tolerate oral diet. Patient not verbal and does not communicate at this time. From history has been losing lots of weight. Recently had NG tube placed for tube feeds and KUB noted possible SBO vs Ileus. Surgery called to evaluate. patient seen, history obtained from EMR and team, exam performed. Allergies: Coded Allergies: No Known Allergies (Verified , 07/05/11) Medication History Scheduled No Known Medications* (NKM - No Known Medications*), 0 ., (Reported) Patient History Limited by: medical condition History Provided By: Medical Record, PMD Healthcare decision maker N Resuscitation status Full Code Advanced Directive on File Past Medical/Surgical History Past Medical/Surgical History: (1) Protein calorie malnutrition (2) Hyperkalemia (3) Renal failure (4) Hypothyroid (5) Failure to thrive (6) No known problems (7) Severe protein-calorie malnutrition (Woodward: less than 60% of standard weight ) (8) Acute renal failure (9) Hypothyroidism (10) Underweight (11) Hypokalemia (12) Folate deficiency (13) Acute encephalopathy (14) Anemia of chronic disease (15) ARF (acute renal failure) (16) Hypokalemia (17) CKD (chronic kidney disease) (18) PSA elevation (19) Severe malnutrition (20) Ileus (21) Lives alone without help available Review of Systems ROS Narrative cannot obtain given patients medical condition Physical Exam General Appearance: no apparent distress HEENT: atraumatic Neck: supple Respiratory/Chest: normal breath sounds, no respiratory distress, no accessory muscle use Cardiovascular/Chest: normal peripheral pulses Abdomen: no organomegaly, no mass, other - hard to get exam given condition. firm but very skinny patient with tight tissues. soft overall. no masses. no distention. Extremities: no edema, no cyanosis Skin Exam: warm/dry Neurologic: unresponsiveness Last 24 Hour Vital Signs Date Time Temp Pulse Resp B/P (MAP) Pulse Ox O2 Delivery O2 Flow Rate FiO2 09/05/17 16:00 18 100/57 99 Room Air 09/05/17 12:14 98.8 60 18 95/59 98 Room Air 09/05/17 09:21 96.7 55 18 100/50 99 Room Air 09/05/17 08:00 96.7 59 18 100/50 99 Room Air 09/05/17 04:00 96.6 52 20 109/56 99 Room Air 09/05/17 00:00 96.9 53 18 106/63 97 Nasal Cannula 09/04/17 19:56 96.0 56 20 103/71 99 Room Air Intake and Output 09/04/17 09/05/17 19:00 07:00 Intake Total 1120 ml 1200 ml Output Total 350 ml 200 ml Balance 770 ml 1000 ml Intake Oral 120 ml IV Total 1000 ml 1200 ml Output Urine Total 350 ml 200 ml Laboratory Tests Test 09/05/17 10:25 White Blood Count 2.6 K/UL (4.8-10.8) L Red Blood Count 3.15 M/UL (4.70-6.10) L Hemoglobin 10.0 G/DL (14.2-18.0) L Hematocrit 30.3 % (42.0-52.0) L Mean Corpuscular Volume 96 FL (80-99) Mean Corpuscular Hemoglobin 31.6 PG (27.0-31.0) H Mean Corpuscular Hemoglobin Concent 32.9 G/DL (32.0-36.0) Red Cell Distribution Width 16.0 % (11.6-14.8) H Platelet Count 32 K/UL (150-450) #L Mean Platelet Volume 11.4 FL (6.5-10.1) H Neutrophils (%) (Auto) % (45.0-75.0) Lymphocytes (%) (Auto) % (20.0-45.0) Monocytes (%) (Auto) % (1.0-10.0) Eosinophils (%) (Auto) % (0.0-3.0) Basophils (%) (Auto) % (0.0-2.0) Differential Total Cells Counted 100 Neutrophils % (Manual) 82 % (45-75) H Lymphocytes % (Manual) 10 % (20-45) L Monocytes % (Manual) 2 % (1-10) Eosinophils % (Manual) 0 % (0-3) Basophils % (Manual) 0 % (0-2) Band Neutrophils 6 % (0-8) Nucleated Red Blood Cells 1 /100 WBC Platelet Estimate Decreased L Platelet Morphology Normal Sodium Level 139 MMOL/L (136-145) Potassium Level 3.5 MMOL/L (3.5-5.1) Chloride Level 108 MMOL/L (98-107) H Carbon Dioxide Level 16 MMOL/L (21-32) L Anion Gap 15 mmol/L (5-15) Blood Urea Nitrogen 91 mg/dL (7-18) H Creatinine 5.1 MG/DL (0.55-1.30) H Estimat Glomerular Filtration Rate mL/min (>60) Glucose Level 96 MG/DL (74-106) Uric Acid 9.2 MG/DL (2.6-7.2) H Calcium Level 7.3 MG/DL (8.5-10.1) L Phosphorus Level 2.8 MG/DL (2.5-4.9) Magnesium Level 1.8 MG/DL (1.8-2.4) Total Bilirubin 0.2 MG/DL (0.2-1.0) Aspartate Amino Transf (AST/SGOT) 25 U/L (15-37) Alanine Aminotransferase (ALT/SGPT) 17 U/L (12-78) Alkaline Phosphatase 51 U/L (46-116) Total Protein 5.4 G/DL (6.4-8.2) L Albumin 1.9 G/DL (3.4-5.0) L Globulin 3.5 g/dL Albumin/Globulin Ratio 0.5 (1.0-2.7) L Height (Feet): 5 Height (Inches): 8.00 Weight (Pounds): 100 Medications Current Medications Medications (Trade) Dose Ordered Sig/Saud Route PRN Reason Start Time Stop Time Status Last Admin Dose Admin Dextrose/Sodium Chloride 1,000 ml @ 75 mls/hr [id number] IV 09/05/17 17:15 10/05/17 17:14 Dronabinol (Marinol) 5 mg TID ORAL 09/04/17 13:00 10/04/17 12:59 09/05/17 12:56 Ergocalciferol (Drisdol) 50,000 intlu QWEEK ORAL 09/04/17 12:00 10/04/17 11:59 09/04/17 14:36 Folic Acid (Folate) 5 mg DAILY ORAL 09/03/17 11:00 10/03/17 10:59 09/04/17 08:54 Levothyroxine Sodium (Synthroid) 50 mcg ACBREAKFAST ORAL 09/04/17 06:30 10/04/17 06:29 09/05/17 05:30 Lorazepam (Ativan 2mg/ml 1ml) 0.5 mg Q6H PRN IM agitation/restlessness 09/01/17 17:45 09/07/17 11:44 09/02/17 00:39 Olanzapine (ZyPREXA) 2.5 mg EVERY 4 HOURS PRN ORAL agitation 09/01/17 17:20 09/30/17 17:19 Olanzapine (ZyPREXA) 5 mg BEDTIME ORAL 09/01/17 21:00 09/30/17 20:59 09/04/17 20:45 Pantoprazole (Protonix) 40 mg DAILY ORAL 09/02/17 09:00 09/29/17 13:59 09/04/17 08:53 Tamsulosin HCl (Flomax) 0.4 mg BID ORAL 09/04/17 12:00 10/04/17 11:59 09/04/17 14:37 Assessment/Plan Problem List: (1) Ileus Assessment & Plan: 77M multiple issues noted to have small bowel distention on KUB after NG tube placement. Possible sbo vs ileus. more likely ileus but need to ensure given patients exam unreliable. -CT A/P -will follow exam -trend labs -thank you for this consultation. will follow with recs. ICD Codes: K56.7 - Ileus, unspecified SNOMED: [id number] Status: stable Geovani Birch Sep 05, 2017 17:36
[2017-09-05] MEDS ORDERED: Sodium Chloride 500ML 500 ML IV ONE (19:45)
[2017-09-05] MEDS ORDERED: Phenylephrine 50 MG in D5W 245 ML IV SCH (22:00)
--- NOTE | 2017-09-05 22:06 | Emergency Room Report ---
History of Present Illness General Chief Complaint: Generalized Weakness Source: Medical Record, PMD Present Illness Allergies: Coded Allergies: No Known Allergies (Verified , 07/05/11) Nursing Documentation-[facility] Past Medical History: No Stated History Hx Cardiac Problems: No Hx Cancer: No Hx Gastrointestinal Problems: No Hx Neurological Problems: No Physical Exam Vital Signs Date Time Temp Pulse Resp B/P (MAP) Pulse Ox O2 Delivery O2 Flow Rate FiO2 08/29/17 14:08 90 16 142/96 99 Room Air 08/29/17 14:25 97.4 09/05/17 20:54 100 Procedures Critical Care Time Critical Care Time CC time 60 minutes Critical care time endorsed for this patient who had cardiac arrest in radiology Critical care time includes review of laboratory tests, imaging, review of EMR, review of paperwork from SNF (if available), discussion with patient and family (if available), review of code status/POLS (if available). Critical care time also likely includes assessment of fluid status, stabilization of vital signs, selection and dosing of appropriate antibiotics, selection and dosing of pressors. Critical care time does not include any procedures which are documented elsewhere in this EMR. Ultrasound Ultrasound : Consent: Emergent Ultrasound: normal Patient Tolerated: Well Complications: None Progress bedside ultrasound of cardiac contractility Central Line Central Line : Consent: Emergent Central Line Lumen: triple Maximal Sterile Barrier Tech: yes cap, yes mask, yes sterile gown, yes sterile gloves, yes large sterile sheet, yes hand hygiene, yes chlorhexidine prep Central Line Postion: femoral (R) Complications: none Central Line Post Position: sutured, good blood return, position confirmed w / CXR Attempts: One Patient Tolerated: Well Complications: None Intubation Intubation : Consent: Emergent Tube Size (cm): 7.5 Breath Sounds after Intubation: equal Intubation Complications: no complications Post Intubation Xray: Yes Attempts: One Patient Tolerated: Well Complications: None Medical Decision Making Diagnostic Impression: Primary Impression: Hyperkalemia Additional Impressions: Hypothyroid Qualified Codes: E03.9 - Hypothyroidism, unspecified Failure to thrive Qualified Codes: R62.7 - Adult failure to thrive Renal failure Qualified Codes: N17.9 - Acute kidney failure, unspecified Protein calorie malnutrition Qualified Codes: E43 - Unspecified severe protein-calorie malnutrition Cardiac arrest ER Course Code Blue called for this patient to Radiology for ?cardiac arrest At this time, I was in the process of placing a central line in an unresponsiveness/hypoglycemic patient in the ED with no IV access - I told ER staff to have the patient be brought to ED immediately with CPR in progress during transport since there was no ventilator available in radiology and no other equipment. Staff refused to bring patient to ED initially. Period of time elapsed was 5-10 minutes Per RN, patient had been steadily hypotensive on floor, decreased responsiveness. Was in CT for CT abdomen? Per RN, patient lost pulse, CPR was administered with epi and they had ROSC. Then 2x atropine was given for alleged bradycardia on monitor At this time patient was brought to ED There was no pulse Peripheral IV was lost in radiology when bicarb was attempted to be pushed - there was no attempt to place additional line by nursing staff in Radiology Patient was pulseless in ED Was emergently intubated without sedation in the ED and connected to vent CPR was continued I placed Right tibial IO and pushed 1x epi myself On next pulse check, patient had strong peripheral pulse and good cardiac contractility on bedside ultrasound I then placed central line to right femoral site Patient then noted to be hypotensive, levophed pressor started Duane Mtz and Tabatha notified at 912pm that patient going to ICU from ED Chest X-Ray Diagnostic Results Chest X-Ray Diagnostic Results : Chest X-Ray Ordered: Yes # of Views/Limited/Complete: 1 View Indication: Other - tube placement EP Interpretation: Yes Interpretation: other - satisfactory ET tube placement Electronically Signed by: Dr Terrence Moreno MD Other X-Ray Diagnostic Results Other X-Ray Diagnostic Results : X-Ray ordered: Abdomen # of Views/Limited Vs Complete: 1 View Indication: Other - Right fem central line EP Interpretation: Yes Interpretation: other - satisfactory position of right femoral CVP Electronically Signed by: Dr Terrence Moreno MD Last Vital Signs Date Time Temp Pulse Resp B/P (MAP) Pulse Ox O2 Delivery O2 Flow Rate FiO2 09/05/17 20:54 84 22 100 09/05/17 20:00 96.6 82/50 94 09/05/17 16:00 Room Air Status: improved Disposition: ADMITTED INPATIENT Condition: Critical Referrals: NOT CHOSEN IPA/,REFERRING (PCP) TERRENCE MORENO M.D. Sep 05, 2017 22:06
[2017-09-05] MEDS ORDERED: LORazepam Inj 2mg/ml 1ml IV PRN (22:30)
[2017-09-05] MEDS ORDERED: Morphine Sulfate 4mg/ml Inj IVP PRN (22:30)
--- NOTE | 2017-09-05 23:32 | Consultation ---
Consult Note Consult Note NEUROLOGY CONSULTATION: Full note dictated #[id number] 77 y/o, BM of ?H who was brought into the hospital on 08/29/17 for FTT and weight loss. He was discovered to have severe PCM and had ARF his mental state continued to be altered. On 09/05/17 he had respiratory problems and then bradycardia while he was in radiology. He was taken to the ER where he again coded. ON EXAM: No response to DP Minimal EM on OCM Pupils R=2.5/L=5 (NR) IMPRESSION: Severe encephalopathy which started out with metabolic encephalopathy due to renal failure and then now anoxic/ischemic encephalopathy. REC: Stabilize in ICU CT of brain w/o contrast as soon as he can be taken out of the ICU EEG Observe Padmini Gardner M.D., M.S.[facility]. PADMINI GARDNER Sep 05, 2017 23:32
[2017-09-05] MEDS ORDERED: LORazepam Inj 2mg/ml 1ml IM PRN (23:45)
[2017-09-06] VITALS: BP 47/29
[2017-09-06 00:15] VITALS: BP 31/16
[2017-09-06 00:30] VITALS: BP 0/0
[2017-09-06 00:36] VITALS: BP 0/0
[2017-09-06] MEDS ORDERED: Sodium Bicarbonate 50ml Carp ONE ×2 (00:45)
[2017-09-06] MEDS ORDERED: Tubing IV Secondary IV ONE (00:45)
[2017-09-06] MEDS ORDERED: Calcium Chloride 10% 10ml carpuject IVP ONE ×2 (00:45)
[2017-09-06] MEDS ORDERED: D5 1/2NS 1000ml IV ONE ×2 (00:45)
[2017-09-06] MEDS ORDERED: Atropine Inj 1mg/10ml Syr ONE (00:45)
[2017-09-06] MEDS ORDERED: OLANZapine 2.5mg tab ORAL PRN (01:00)
--- NOTE | 2017-09-06 02:29 | Emergency Room Report ---
Physical Exam Vital Signs Date Time Temp Pulse Resp B/P (MAP) Pulse Ox O2 Delivery O2 Flow Rate FiO2 08/29/17 14:08 90 16 142/96 99 Room Air 08/29/17 14:25 97.4 09/05/17 20:54 100 09/05/17 22:00 60.0 Medical Decision Making Diagnostic Impression: Primary Impression: Hyperkalemia Additional Impressions: Hypothyroid Qualified Codes: E03.9 - Hypothyroidism, unspecified Cardiac arrest Failure to thrive Qualified Codes: R62.7 - Adult failure to thrive Renal failure Qualified Codes: N17.9 - Acute kidney failure, unspecified Protein calorie malnutrition Qualified Codes: E43 - Unspecified severe protein-calorie malnutrition ER Course This patient was limited to the ICU for respiratory failure and cardiac arrest. He went to the ICU, shortly afterward a CODE BLUE was called. I responded. Patient was getting CPR on my arrival. He had a total of 3 rounds of epinephrine and also given calcium. After the third round of epinephrine, he had spontaneous pulse. He is already maxed out on his affected I ordered Thierry- Synephrine. He coded again about 2 hours later. This time, he regained pulse after 5 rounds of epinephrine. He coded again around 12:40 AM. After several rounds of epinephrine he remained asystole and I pronounced him at 12:46 AM. Please see code sheets for all the medication information. Last Vital Signs Date Time Temp Pulse Resp B/P (MAP) Pulse Ox O2 Delivery O2 Flow Rate FiO2 09/06/17 00:36 0 0 0/0 Mechanical Ventilator 100 09/06/17 00:00 96.0 09/05/17 22:00 60.0 09/05/17 20:00 94 Disposition: ADMITTED INPATIENT Condition: Referrals: NOT CHOSEN LYNNE/,REFERRING (PCP) EVE ORELLANA M.D. Sep 06, 2017 02:29
[2017-09-06] MEDS ORDERED: LORazepam Inj 2mg/ml 1ml IV PRN (02:30)
[2017-09-06] MEDS ORDERED: Morphine Sulfate 4mg/ml Inj IVP PRN (02:30)
[2017-09-06] MEDS ORDERED: Pantoprazole Inj IV SCH ×2 (09:00)
[2017-09-06] MEDS ORDERED: Dronabinol 2.5mg Cap ORAL SCH (09:00)
[2017-09-06] MEDS ORDERED: Tamsulosin 0.4mg cap ORAL SCH (09:00)
--- NOTE | 2017-09-06 10:15 | Consultation ---
DATE OF CONSULTATION: 09/05/2017 NEUROLOGY CONSULTATION CONSULTING PHYSICIAN: Kole Gardner M.D. REQUESTING PHYSICIAN: Tabatha Starr M.D. HISTORY: Mr. Tera Soto is a 77-year-old, black gentleman, of unknown handedness, who was brought into [facility] emergency room on 08/29/2017 for failure to thrive and weight loss. When he was brought into the emergency room, he was discovered to have severe protein-calorie malnutrition and acute renal failure. His mental state was significantly altered and he continued to have an altered mental state. He was being evaluated with a CT scan of the abdomen this evening at approximately 8:00 p.m. and apparently had problems with respirations and then became bradycardic and a Code Blue was called. He was resuscitated and taken to the emergency room. In the emergency room, he again coded. He was then brought into the ICU, where he coded on the third occasion. At this point in time, he is unresponsive. This consultation was requested to evaluate the patient for his altered mental state. PAST HISTORY: Unavailable. FAMILY HISTORY: Unavailable. PERSONAL HISTORY: Home. He apparently lives alone at home. Work: He is retired. Habits: Unknown. PRESENT MEDICATIONS: Include ergocalciferol, phenylephrine, norepinephrine, Zyprexa, Marinol, folic acid, pantoprazole, Flomax, Synthroid, lorazepam, and morphine sulfate. PHYSICAL EXAMINATION: GENERAL: He is a well-developed, but lean, cachectic-looking black gentleman, lying in an ICU bed, connected to a ventilator via an orotracheal tube. VITAL SIGNS: Pulse 96 per minute, blood pressure 51/34 mmHg, respirations 24 per minute, and temperature 96.6 degrees Fahrenheit. HEAD: Normocephalic and atraumatic. NECK: No neck rigidity was observed. EENT: Benign. NEUROLOGICAL EXAMINATION: MENTAL STATUS EXAMINATION: He was comatose and did not respond even to deep painful stimuli. Further mental status testing was impossible. SPEECH: Could not be tested. LANGUAGE: Could not be tested. CRANIAL NERVE EXAMINATION: II: He did not blink to threat. III, IV & : The external ocular movements were present, but restricted on oculocephalic maneuvers. The right pupil was 2.5 mm and the left pupil 5 mm. They did not react to light. V & VII: Corneal reflexes were absent. VIII: He did not respond to sounds and had no nystagmus. IX & X: The gag reflex was absent. XI: The sternocleidomastoids and trapezii did not function. XII: Could not be tested. MOTOR SYSTEM: The tone was flaccid in all four extremities. Examination of muscle mass revealed generalized muscle wasting. Examination of power could not be performed because even on applying deep painful stimuli, no movements were seen. SENSORY EXAMINATION: He did not respond even to deep painful stimuli. REFLEXES: 0 at the biceps, triceps, brachioradialis, knees, and ankles. The plantar responses were mute bilaterally. COORDINATION, STANCE & GAIT: Could not be tested. DIAGNOSTIC IMPRESSION: 1. Mr. Tera Soto is a 77-year-old, black gentleman, of unknown handedness, who was hospitalized on 08/29/2017 for failure to thrive and weight loss. He was found to have multiple metabolic imbalances including severe renal failure, severe hypothyroidism, vitamin D deficiency, folate deficiency, and significant protein-calorie malnutrition. He was then stabilized, but then on 09/05/2017, had a respiratory arrest and then a significant bradycardia while he was getting a CT scan of the abdomen done. He had to be coded on three occasions and at this point in time, is comatose. 2. On neurological examination, at this time, he does not respond to deep pain. He has minimal eye movements on oculocephalic maneuvers. The right pupil is 2.5 mm and left pupil 5 mm and both unreactive. He does not respond to any painful stimuli. He is areflexic. 3. 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 RECOMMENDATIONS: 1. Agree with management thus far. 2. Continue to manage in an ICU setting. 3. If and when possible when it is safe to be taken out of the ICU, a CT scan of the brain without contrast should be done. 4. An EEG should be performed to evaluate the patient for the degree and type of cerebral dysfunction. 5. Depending on how the patient fares over the next few days, further recommendations will be given. Thank you for entrusting me with the care of Mr. Soto. I shall follow him with you. Kole Gardner M.D., M.S.P.H. DR: Nathalia JOB#: [id number] BRANDON
--- NOTE | 2017-09-06 16:45 | Progress Note ---
DATE: 09/06/2017 SUBJECTIVE: The patient is presenting with anxiety and agitation. Poor insight and judgment and one-to-one. MENTAL STATUS EXAMINATION: The patient is confused and disoriented. Mood is anxious. Affect is constricted. Congruent with mood. Thought process, there is a paucity of thought content. Cognition is impaired. ASSESSMENT: 1. Encephalopathy. 2. Dementia. 3. Agitation. PLAN: We will continue current medications. Ana Ingram M.D. DR: ROBERTO JOB#: [id number] CC:
--- NOTE | 2017-09-06 16:56 | Diagnostic Imaging Report ---
Indication: Catheter placement Technique: XRAY Abdomen 1v Comparison: None Findings: Exam limited by patient rotation. Right groin approach catheter has its tip in the region of L4. Multiple leads/wires overlying the abdomen. Houser catheter in place. Nonspecific bowel gas pattern with gaseous distention of large and small bowel loops. No acute osseous abnormality seen. Impression: Right groin approach catheter tip projecting over the level of L4. Nonspecific bowel gas pattern with distention of large and small bowel loops. Correlate clinically. CT of the abdomen and pelvis can be obtained for further evaluation as clinically indicated.
--- NOTE | 2017-09-06 16:59 | Diagnostic Imaging Report ---
Indication: Intubation Technique: XRAY Chest 1v Comparison: 08/29/2018 Findings: Limited exam given patient rotation. Endotracheal tube tip below level of the follicles, approximately 2.7 cm above the dave. NG tube tip in the proximal stomach, side-port in the region of the esophageal junction, advancement recommended. Cardiac pacer/fibular pads overlie the chest. Heart size and mediastinal contours appear stable. There are bilateral interstitial and patchy perihilar airspace opacities. IMPRESSION: Limited exam. Satisfactory endotracheal intubation. NG tube tip in the proximal stomach, side-port in the region of the gastroesophageal junction. Advancement recommended. Interstitial and patchy predominant perihilar airspace opacities. Findings may related to CHF/fluid overload. Clinical correlation and follow-up exam recommended.
[2017-09-06] MEDS ORDERED: Phenylephrine 50 MG in D5W 245 ML IV SCH (22:00)
[2017-09-11] MEDS ORDERED: Vitamin D 50,000 units cap ORAL SCH (12:00)
--- NOTE | 2017-09-13 14:21 | Discharge Summary ---
Discharge Summary Hospital Course Date of Admission Aug 29, 2017 at 15:12 Date of Discharge Sep 06, 2017 at 00:46 Admitting Diagnosis Failure to thrive HPI Tera Soto is a 77 year old male who was admitted on Aug 29, 2017 at 15: 12 for Failure To Thrive Hospital Course [id number] Discharge Discharge Disposition Patient Discharge Diagnoses: Heather Ramos NP Sep 13, 2017 14:21
--- NOTE | 2017-09-14 00:15 | Discharge Summary 2 SIG ---
DATE OF ADMISSION: 08/29/2017 DATE OF DISCHARGE: 09/06/2017 SUMMARY BRIEF SUMMARY: The patient is a 77-year-old male with no known past medical history, presented with generalized weakness and weight loss. The patient is a poor historian and per report, paramedics were called in by concerned neighbors as the patient was noted to be weaker and losing weight for the past month. The patient claims his appetite is good. He denied any pain, nausea, vomiting, diarrhea, or constipation. Denied chest pain or shortness of breath. He does not have any family or friends nearby. On evaluation at ED, workup showed renal failure, creatinine was 9 and BUN was 34. He was hyperkalemic, potassium 5.8. He was given IV fluids. TSH was elevated to 12. He was given steroids and levothyroxine. He was given IV hydration. Kidney ultrasound showed bilateral hydroureteronephrosis. There was presence of heterogenous structure within the bladder. Hydronephrosis possibly related to obstruction from bladder lesion. He had Moscoso catheter inserted and had slight hematuria, which eventually resolved. He was given prn moscoso hand irrigation. Vitamin D and folic acid was low. He was given vitamin D and folic acid replacement. He had a transthoracic echocardiogram that showed EF of 70%. Venous duplex was negative for DVT. The patient was cleared for transfer to a contracted facility, however, no bed was available. The patient was agitated and confused, was initially placed on bilateral wrist restraints. On psychiatric evaluation, the patient was assessed he has no capacity to leave AMA. He was started on Zyprexa. Restraints was eventually discontinued and was placed on one-to-one sitter. PSA was elevated. Renal function improved, however, would be needing to be started on hemodialysis. There was also poor p.o. intake. KUB showed dilated bowel loops. His PSA was elevated to greater than 100. The patient underwent CT. The patient Coded. He was then orally intubated and a central line was inserted to the right femoral vein. He was transferred to ICU on IV pressors. He was evaluated by neurologist. The patient was comatose. Neurology exam was compatible with severe encephalopathy, which started out as metabolic encephalopathy due to renal failure and has sustained anoxic ischemic encephalopathy. Due to multiple cardiac arrests, he continued to Code. The patient eventually . FINAL DIAGNOSES: 1. Acute metabolic and anoxic encephalopathy. 2. Acute renal failure. 3. Hypothyroidism. 4. Failure to thrive. 5. Severe protein-calorie malnutrition. 6. Hyperkalemia. 7. Hypokalemia. 8. Folate deficiency. 9. Anemia of chronic disease. 10. Elevated prostate specific antigen. 11. Hematuria. 12. Possible blood clot versus mass in bladder. 13. Agitation. 14. Low vitamin D. 15. Low folate level. DISPOSITION: The patient . Tabatha Starr M.D. I have been assigned to dictate discharge summary on this account and I was not involved in the patient's management. Heather Ramos N.P. DR: YOLANDE JOB#: [id number] CC: BRANDON
== END 2017-09-06 00:46 | disposition expired | DRG 682 ==
LOC: EDBD 14:02 → EMR 14:33 → 2E 15:12 → EDBEDREQSVC 15:39 → EDBEDREQ 15:39 → 2E 08-31 06:58 → 4E 09-01 16:52 → 4W 09-01 18:14 → ICU 09-05 21:12
PROC: 0BH17EZ Insertion of Endotracheal Airway into Trachea, Via Natural or Artificial Opening (ICD-10-PCS; principal; 2017-09-05)
PROC: 06HM33Z Insertion of Infusion Device into Right Femoral Vein, Percutaneous Approach (ICD-10-PCS; principal; 2017-09-05)
PROC: 5A1935Z Respiratory Ventilation, Less than 24 Consecutive Hours (ICD-10-PCS; principal; 2017-09-05)
DX: N17.9 Acute kidney failure, unspecified (principal); E43 Unspecified severe protein-calorie malnutrition; R40.20 Unspecified coma; G93.41 Metabolic encephalopathy; G93.1 Anoxic brain damage, not elsewhere classified; K56.7 Ileus, unspecified; E86.0 Dehydration; Z68.1 Body mass index [BMI] 19.9 or less, adult; E87.5 Hyperkalemia; N13.9 Obstructive and reflux uropathy, unspecified; D64.9 Anemia, unspecified; R31.9 Hematuria, unspecified; N18.9 Chronic kidney disease, unspecified; R62.7 Adult failure to thrive; R33.9 Retention of urine, unspecified; R80.9 Proteinuria, unspecified; I12.9 Hypertensive chronic kidney disease with stage 1 through stage 4 chronic kidney disease, or unspecified chronic kidney disease; R63.6 Underweight; E03.9 Hypothyroidism, unspecified; N40.1 Benign prostatic hyperplasia with lower urinary tract symptoms; R33.8 Other retention of urine; N31.9 Neuromuscular dysfunction of bladder, unspecified; N13.30 Unspecified hydronephrosis; E55.9 Vitamin D deficiency, unspecified; R97.20 Elevated prostate specific antigen [PSA]; E87.6 Hypokalemia
CPT/HCPCS: 36415; 36600; 71045; 74018; 76775; 80048; 80053; 80076; 80307; 80329; 81001; 81003; 81050; 82306; 82533; 82550; 82570; 82575; 82607; 82728; 82746; 82803; 83540; 83550; 83605; 83735; 83880; 84100; 84134; 84153; 84156; 84300; 84403; 84439; 84443; 84484; 84550; 85007; 85025; 85610; 85651; 85730; 86140; 87086; 92950; 93005; 93306; 93970; 94002; 94003; 94664; 99285; J0171; J2370; J8499